=== PATIENT | female | born 1965 | race American Indian/Alaskan Native ===

== ENCOUNTER 2016-05-03 20:35 | Emergency (ER) | payer MEDICARE ==
[2016-05-03 23:45] VITALS: BP 127/85
[2016-05-04] MEDS ORDERED: TYLENOL PO ONE (00:59)
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
[2016-05-04] MEDS ORDERED: MOTRIN PO ONE (03:16)
[2016-05-04] MEDS ORDERED: BENADRYL PO ONE (03:16)
--- NOTE | 2016-05-04 03:24 | Cat Scan Report ---
FINAL REPORT PROCEDURE: CT FACIAL BONES WO CON TECHNIQUE: Computerized tomography of the facial bones and soft tissues with axial and coronal sections performed from the cranial aspect of the frontal sinuses to the caudal portion of the mandible without contrast material. HISTORY: left eye trauma COMPARISON: No prior studies are available for comparison. FINDINGS: Bones: There is a fracture of the left side of the nasal bone. The anterior maxillary spine is intact. The bony orbital ortega are intact. There facial bones are intact. Zygomatic arches are intact. The mandible and temporal mandibular joints are intact.. Paranasal sinuses: There is mucosal thickening in the left maxillary sinus. There are no air-fluid levels.. Soft tissues: Globes, optic nerves and extraocular muscles are intact. There is no proptosis or hematoma.. Other: None. IMPRESSION: There is a fracture of the left side of the nasal bone. The anterior maxillary spine is intact. The bony orbital ortega are intact. There facial bones are intact.
== END 2016-05-04 04:08 | disposition home or self-care (01) ==
LOC: ED 20:35
DX: S02.2XXA Fracture of nasal bones, initial encounter for closed fracture (principal); J45.909 Unspecified asthma, uncomplicated; F41.9 Anxiety disorder, unspecified; F17.210 Nicotine dependence, cigarettes, uncomplicated; F12.90 Cannabis use, unspecified, uncomplicated; Z88.8 Allergy status to other drugs, medicaments and biological substances; Y04.2XXA Assault by strike against or bumped into by another person, initial encounter; Y93.89 Activity, other specified; Y99.9 Unspecified external cause status; Y92.89 Other specified places as the place of occurrence of the external cause
CPT/HCPCS: 70486

== ENCOUNTER 2016-06-23 09:02 | Inpatient (IN) | payer MEDICARE ==
[2016-06-23 10:04] LABS: Basophils % (Auto) 0.9 % (0.0-1.8); Eosinophils % (Auto) 4.2 % (0.0-4.3); Hematocrit 34.7 % (30.3-42.9); Hemoglobin 11.4 gm/dl (10.1-14.3); Mean Corpuscular HGB Conc 33 % (30-34); Mean Corpuscular Hemoglobin 30 pg (28-32); Mean Corpuscular Volume 91 fl (79-97); Platelet Count 261 K/mm3 (140-440); Red Blood Count 3.84 M/mm3 (3.65-5.03); Red Cell Distribution Width 13.1 % (13.2-15.2); White Blood Count 6.4 K/mm3 (4.5-11.0)
[2016-06-23 10:22] LABS: Alanine Aminotransferase 48 units/L (7-56); Albumin 4.1 g/dL (3.9-5); Albumin/Globulin Ratio 1.6 %; Alkaline Phosphatase 143 units/L (35-129); Anion Gap 19 mmol/L; BUN/Creatinine Ratio 8.33; Bilirubin,Total 0.4 mg/dL (0.1-1.2); Blood Urea Nitrogen 5 mg/dL (7-17); Carbon Dioxide 25 mmol/L (22-30); Chloride 99.4 mmol/L (98-107); Glucose 90 mg/dL (65-100); Lipase 8 units/L (13-60); Potassium 4.4 mmol/L (3.6-5.0); Sodium 139 mmol/L (137-145); Total Protein 6.7 g/dL (6.3-8.2)
[2016-06-23 11:50] LABS: Bacteria,Urine 2+ /HPF (Negative); Bilirubin,Urine NEG (Negative); Blood,Urine NEG (Negative); Ketones,Urine NEG (Negative); Leukocyte Esterase,Urine TR (Negative); Mucus,Urine 1+ /HPF; Nitrite,Urine NEG (Negative); Protein,Urine <15 mg/dL mg/dL (Negative); Urobilinogen,Urine < 2.0 mg/dL (<2.0)
[2016-06-23] MEDS ORDERED: NACL 0.9% 1000 ML 1,000 ML IV ONE (22:43)
[2016-06-23] MEDS ORDERED: DILAUDID IV ONE (22:43)
[2016-06-23] MEDS ORDERED: ZOFRAN IV ONE (22:43)
--- NOTE | 2016-06-23 22:44 | Emergency Department Report ---
ED General Adult HPI - General Chief complaint: Abdominal Pain Stated complaint: SEVERE ABD PAIN/UNABLE TO USE BATHROOM Time Seen by Provider: 06/23/16 22:34 Source: patient, RN notes reviewed, old records reviewed Mode of arrival: Ambulatory Limitations: No Limitations - History of Present Illness Initial comments: This is a 50-year-old female. She is previously unknown to me. Patient has a past medical history of interstitial cystitis, sciatica disorder, small bowel obstruction, constipation. Patient recently admitted to the hospital for intractable nausea and vomiting. Patient did have a recent history of laparotomy for bowel obstruction with lysis of adhesions 3 weeks prior to presentation on for very 2016. Patient was seen by her general surgeon, Dr. Santos, who stated "the patient had persistent constipation thought to be opioid induced. She had a small bowel series done after week of surgery and instead of Gastrografin in order to with given barium from the chests has been very slow to past because of the OIC." The patient presents again to the ER complaining of nausea and vomiting diffuse abdominal pain. She reports having had a small bowel movement on June 15, reports not defecating since then. Her abdominal pain is sharp and achy. It is all over. It increases with palpation and range of motion. It decreases with rest. She reports difficulty tolerating liquid feeds. She also reports chronic dysuria, which is not new, worse and different. She recently moved here from [place], and does not have a private urologist. -: Gradual Location: abdomen Quality: aching Consistency: constant Improves with: medication, rest Worsens with: eating Associated Symptoms: loss of appetite, malaise, nausea/vomiting, weakness - Related Data Home Medications Medication Instructions Recorded Confirmed Last Taken Cyclobenzaprine [Flexeril 10 MG 10 mg PO TID PRN 01/10/16 06/11/16 06/08/16 TAB] Ferrous Sulfate 4 mg PO DAILY 01/10/16 06/11/16 06/08/16 Multivitamin No.44/Vit D3/K 1 each PO DAILY 01/10/16 06/11/16 06/08/16 [Multivitamins Softgels] Polyethylene Glycol 3350 [Miralax 17 gram PO DAILY 01/10/16 06/11/16 06/08/16 3350] traZODone [Desyrel] 100 mg PO QHS 01/10/16 06/11/16 01/10/16 Diazepam [Valium] 10 mg PO BID PRN 03/29/16 06/11/16 06/08/16 Previous Rx's Medication Instructions Recorded Last Taken Type Ondansetron [Zofran ODT TAB] 4 mg PO Q8HR PRN #20 tab.rapdis 04/04/16 06/08/16 Rx Sennosides/Docusate Sodium 1 each PO DAILY #15 tablet 05/29/16 06/08/16 Rx [Senna-Docusate Sodium Tablet] Lactulose [Cephulac] 20 gm PO Q6HR #30 oral.liqd 06/06/16 06/08/16 Rx oxyCODONE /ACETAMINOPHEN [Percocet 1 tab PO Q6H PRN #15 tablet 06/15/16 Unknown Rx 5/325 mg] Allergies Allergy/AdvReac Type Severity Reaction Status Date / Time hydrocodone bitartrate Allergy Hives Verified 06/10/16 10:47 [From Vicodin] iodine Allergy Hives Verified 06/23/16 09:20 ketorolac tromethamine Allergy Hives Verified 06/10/16 10:47 [From Toradol] shellfish derived Allergy Hives Verified 06/10/16 10:47 tramadol Allergy Hives Verified 06/10/16 10:47 ED Review of Systems ROS: Stated complaint: SEVERE ABD PAIN/UNABLE TO USE BATHROOM Other details as noted in HPI Constitutional: malaise, weakness. denies: fever Eyes: denies: vision change ENT: denies: epistaxis Respiratory: denies: cough Cardiovascular: denies: chest pain Gastrointestinal: abdominal pain, nausea, vomiting, constipation Genitourinary: frequency Musculoskeletal: back pain Skin: denies: lesions Neurological: weakness Psychiatric: anxiety ED Past Medical Hx - Past Medical History Hx Congestive Heart Failure: No Hx Diabetes: No Hx Renal Disease: Yes (interstitial cystitis) Hx Psychiatric Treatment: Yes (anxiety) Hx Asthma: Yes Hx COPD: No Additional medical history: INTERSTITIAL CYSTITIS - Surgical History Hx Cholecystectomy: Yes Hx Appendectomy: Yes Additional Surgical History: HYSTERECTOMY. X 3 - Social History Smoking Status: Current Every Day Smoker Substance Use Type: None - Medications Home Medications: Home Medications Medication Instructions Recorded Confirmed Last Taken Type Cyclobenzaprine [Flexeril 10 MG 10 mg PO TID PRN 01/10/16 06/11/16 06/08/16 History TAB] Ferrous Sulfate 4 mg PO DAILY 01/10/16 06/11/16 06/08/16 History Multivitamin No.44/Vit D3/K 1 each PO DAILY 01/10/16 06/11/16 06/08/16 History [Multivitamins Softgels] Polyethylene Glycol 3350 [Miralax 17 gram PO DAILY 01/10/16 06/11/16 06/08/16 History 3350] traZODone [Desyrel] 100 mg PO QHS 01/10/16 06/11/16 01/10/16 History Diazepam [Valium] 10 mg PO BID PRN 03/29/16 06/11/16 06/08/16 History Ondansetron [Zofran ODT TAB] 4 mg PO Q8HR PRN #20 tab.rapdis 04/04/16 06/11/16 06/08/16 Rx Sennosides/Docusate Sodium 1 each PO DAILY #15 tablet 05/29/16 06/11/16 Rx [Senna-Docusate Sodium Tablet] Lactulose [Cephulac] 20 gm PO Q6HR #30 oral.liqd 06/06/16 06/11/16 06/08/16 Rx oxyCODONE /ACETAMINOPHEN [Percocet 1 tab PO Q6H PRN #15 tablet 06/15/16 Unknown Rx 5/325 mg] ED Physical Exam - General Limitations: No Limitations General appearance: alert, in no apparent distress - Head Head exam: Present: atraumatic, normocephalic - Eye Eye exam: Present: normal appearance, EOMI. Absent: nystagmus - ENT ENT exam: Present: normal exam, normal orophraynx, mucous membranes moist, normal external ear exam - Neck Neck exam: Present: normal inspection, full ROM. Absent: tenderness, meningismus - Respiratory Respiratory exam: Present: normal lung sounds bilaterally. Absent: respiratory distress, wheezes, rales, rhonchi, stridor, decreased breath sounds - Cardiovascular Cardiovascular Exam: Present: normal rhythm, tachycardia, normal heart sounds. Absent: systolic murmur, diastolic murmur, rubs, gallop - GI/Abdominal GI/Abdominal exam: Present: soft, distended, tenderness, other (mild diffuse abdominal tenderness. No rebound, guarding or peritoneal signs). Absent: guarding, rebound, rigid, pulsatile mass - Extremities Exam Extremities exam: Present: normal inspection, full ROM, normal capillary refill. Absent: tenderness, pedal edema, joint swelling, calf tenderness - Back Exam Back exam: Present: normal inspection, full ROM. Absent: tenderness, CVA tenderness (R), CVA tenderness (L), muscle spasm, paraspinal tenderness, vertebral tenderness - Neurological Exam Neurological exam: Present: alert, oriented X3, normal gait, other (Extraocular movements intact. Tongue midline. No facial droop. Facial sensation intact to light touch in the V1, V2, V3 distribution bilaterally. 5 and 5 strength in 4 extremities.. Sensation is intact to light touch in 4 extremities.). Absent : motor sensory deficit - Psychiatric Psychiatric exam: Present: anxious - Skin Skin exam: Present: warm, dry, intact, normal color. Absent: rash ED Course Vital Signs 06/23/16 06/23/16 09:20 22:49 Temperature 98.5 F 98 F Pulse Rate 109 H 101 H Respiratory 20 16 Rate Blood Pressure 132/74 Blood Pressure 110/75 [Left] O2 Sat by Pulse 100 100 Oximetry - Reevaluation(s) Reevaluation #1: 06/23/16 22:51 differential diagnosis: Constipation, bowel obstruction, narcotic bowel syndrome Assessment and plan: 50-year-old female with abdominal pain, distention, nausea and vomiting. We will treat symptomatically. CT scan with oral contrast is pending. We will reassess after initial data points. Reevaluation #2: 06/24/16 04:14 CT scans suggest small bowel obstruction. Nasogastric tube is ordered. Case discussed with patient's general surgeon, Dr. Santos, who agrees to consult on the patient. Case discussed with Hospital physician, Dr. Reddy, who accepts patient to his service. ED Medical Decision Making - Lab Data Result diagrams: 06/23/16 09:47 06/23/16 09:47 Vital Signs 06/23/16 06/23/16 09:20 22:49 Temperature 98.5 F 98 F Pulse Rate 109 H 101 H Respiratory 20 16 Rate Blood Pressure 132/74 Blood Pressure 110/75 [Left] O2 Sat by Pulse 100 100 Oximetry Labs 06/23/16 06/23/16 06/23/16 09:47 09:47 11:36 WBC 6.4 RBC 3.84 Hgb 11.4 Hct 34.7 MCV 91 MCH 30 MCHC 33 RDW 13.1 L Plt Count 261 Lymph % (Auto) 18.0 [place] % (Auto) 7.3 Eos % (Auto) 4.2 Baso % (Auto) 0.9 Lymph # 1.2 [place] # 0.5 Eos # 0.3 Baso # 0.1 Seg Neutrophils % 69.6 Seg Neutrophils # 4.5 Sodium 139 Potassium 4.4 Chloride 99.4 Carbon Dioxide 25 Anion Gap 19 BUN 5 L Creatinine 0.6 L Estimated GFR > 60 BUN/Creatinine Ratio 8.33 Glucose 90 Calcium 9.0 Total Bilirubin 0.4 AST 35 ALT 48 Alkaline Phosphatase 143 H Total Protein 6.7 Albumin 4.1 Albumin/Globulin Ratio 1.6 Lipase 8 L Urine Color Yellow Urine Turbidity Clear Urine pH 6.0 Ur Specific [place] 1.010 Urine Protein <15 mg/dl Urine Glucose (UA) Neg Urine Ketones Neg Urine Blood Neg Urine Nitrite Neg Urine Bilirubin Neg Urine Urobilinogen < 2.0 Ur Leukocyte Esterase Tr Urine WBC (Auto) 6.0 Urine RBC (Auto) 1.0 U Epithel Cells (Auto) 6.0 Urine Bacteria (Auto) 2+ Urine Mucus 1+ Urine HCG, Qual 06/23/16 11:36 WBC RBC Hgb Hct MCV MCH MCHC RDW Plt Count Lymph % (Auto) [place] % (Auto) Eos % (Auto) Baso % (Auto) Lymph # [place] # Eos # Baso # Seg Neutrophils % Seg Neutrophils # Sodium Potassium Chloride Carbon Dioxide Anion Gap BUN Creatinine Estimated GFR BUN/Creatinine Ratio Glucose Calcium Total Bilirubin AST ALT Alkaline Phosphatase Total Protein Albumin Albumin/Globulin Ratio Lipase Urine Color Urine Turbidity Urine pH Ur Specific [place] Urine Protein Urine Glucose (UA) Urine Ketones Urine Blood Urine Nitrite Urine Bilirubin Urine Urobilinogen Ur Leukocyte Esterase Urine WBC (Auto) Urine RBC (Auto) U Epithel Cells (Auto) Urine Bacteria (Auto) Urine Mucus Urine HCG, Qual Negative - Radiology Data Radiology results: report reviewed, image reviewed \\ ct scan of abdomen and pelvis with oral contrast suggests small bowl obstruction Critical care attestation.: If time is entered above; I have spent that time in minutes in the direct care of this critically ill patient, excluding procedure time. ED Disposition Clinical Impression: Small bowel obstruction, Constipation Disposition: OP ADMITTED IP TO THIS HOSP Is pt being admited?: Yes Does the pt Need Aspirin: No Condition: Good
[2016-06-24] MEDS ORDERED: MORPHINE ONE (03:00)
[2016-06-24] MEDS ORDERED: MORPHINE IV ONE ×2 (03:30→04:24)
--- NOTE | 2016-06-24 03:45 | Cat Scan Report ---
FINAL REPORT PROCEDURE: CT ABDOMEN PELVIS WO CON TECHNIQUE: Computerized axial tomography of the abdomen and pelvis was performed without intravenous contrast. This study is performed without intravascular contrast material and its sensitivity for abdominal and pelvic pathology, including neoplasms, inflammation, abscess, free fluid, thrombosis, arterial dissection and infarction, is reduced compared with a contrast enhanced study. HISTORY: ?SBO, abdominal pain COMPARISON: No prior studies are available for comparison. FINDINGS: Visualized lower thorax: No significant abnormality. Liver: Normal size and attenuation. Spleen: Normal size and attenuation. Gallbladder and biliary system: The gallbladder is absent. There is slight dilatation of the central biliary ductal system.. Pancreas: Normal. Adrenals: Normal. Kidneys: Both kidneys have a normal size. No hydronephrosis. No renal stones or masses. GI tract: There distention of the stomach. Multiple loops of distended contrast and gas-filled small bowel identified in the mid and upper abdomen. This extends down into the pelvis. Contrast is identified into the distal ileum. There is significant gas and fecal debris throughout colon. The differential will include partial small bowel obstruction and ileus. Constipation is suspected.. Lymph nodes and mesentery: Normal. Vasculature: Normal. Bladder: The urinary bladder is moderately distended.. Reproductive organs: No pelvic masses.. Peritoneum: No free fluid. Musculoskeletal structures: No significant abnormality. Other: None. IMPRESSION: Multiple loops of distended contrast gas-filled small bowel identified in the mid and upper abdomen. This extends down to the pelvis with contrast identified into the distal ileum. The differential will include partial small bowel obstruction and significant ileus. There is evidence of significant gas and fecal debris throughout the colon. Constipation is suspected. Previous cholecystectomy there is slight dilatation of the central biliary ductal system..
[2016-06-24] MEDS ORDERED: XYLOCAINE TOPICAL 4% TP ONE (04:12)
[2016-06-24] MEDS ORDERED: LIDOCAINE VISCOUS 2% PO ONE (04:12)
[2016-06-24] MEDS ORDERED: TYLENOL PO PRN (06:44)
[2016-06-24] MEDS ORDERED: MILK OF MAGNESIA PO PRN (06:44)
[2016-06-24] MEDS ORDERED: ZOFRAN IV PRN (06:44)
--- NOTE | 2016-06-24 06:50 | History and Physical Report ---
History of Present Illness Date of examination: 06/24/16 Date of admission: 06/24/16 04:12 Chief complaint: Vomiting off and on for one week. History of present illness: 50 year old female admitted to the hospital because of bowel obstruction secondary to opioid-induced constipation. Patient laparotomy for lysis of adhesions or a month ago. She was readmitted 2 weeks ago with vomiting and constipation. She improved with conservative management. He was discharged last week. She comes back with the same symptomatology. A CT of the abdomen showed obstruction secondary to constipation. Past History Past Medical History: other (SBO ) Past Surgical History: cholecystectomy Social history: lives with family, prescription drug abuse. denies: smoking, alcohol abuse Family history: hypertension Medications and Allergies Allergies Allergy/AdvReac Type Severity Reaction Status Date / Time hydrocodone bitartrate Allergy Hives Verified 06/10/16 10:47 [From Vicodin] iodine Allergy Hives Verified 06/23/16 09:20 ketorolac tromethamine Allergy Hives Verified 06/10/16 10:47 [From Toradol] shellfish derived Allergy Hives Verified 06/10/16 10:47 tramadol Allergy Hives Verified 06/10/16 10:47 Home Medications Medication Instructions Recorded Confirmed Last Taken Type Cyclobenzaprine [Flexeril 10 MG 10 mg PO TID PRN 01/10/16 06/24/16 06/22/16 History TAB] Ferrous Sulfate 4 mg PO DAILY 01/10/16 06/24/16 06/22/16 History Multivitamin No.44/Vit D3/K 1 each PO DAILY 01/10/16 06/24/16 06/22/16 History [Multivitamins Softgels] Polyethylene Glycol 3350 [Miralax 17 gram PO DAILY 01/10/16 06/24/16 06/22/16 History 3350] traZODone [Desyrel] 100 mg PO QHS 01/10/16 06/24/16 01/10/16 History Diazepam [Valium] 10 mg PO BID PRN 03/29/16 06/24/16 06/22/16 History Ondansetron [Zofran ODT TAB] 4 mg PO Q8HR PRN #20 tab.rapdis 04/04/16 06/24/16 06/22/16 Rx Lactulose [Cephulac] 20 gm PO Q6HR #30 oral.liqd 06/06/16 06/24/16 06/22/16 Rx oxyCODONE /ACETAMINOPHEN [Percocet 1 tab PO Q6H PRN #15 tablet 06/15/1606/22/16 Rx 5/325 mg] Morphine ER [Ms Contin ER] 30 mg PO Q12HR PRN 06/24/16 06/24/16 06/22/16 History Active Meds: Active Medications Acetaminophen (Tylenol) 650 mg PO Q4H PRN PRN Reason: Pain MILD(1-3)/Fever >100.5/[place] Bisacodyl (Dulcolax) 10 mg HI QDAY PRN PRN Reason: Constipation unrelieved by MOM Enoxaparin Sodium (Lovenox) 40 mg SUB-Q QDAY [place] Hydromorphone HCl (Dilaudid) 1 mg IV Q3H PRN PRN Reason: Pain , Severe (7-10) Dextrose/Sodium Chloride (D5ns) 1,000 mls @ 100 mls/hr IV DIRECT [place] Magnesium Hydroxide (Milk Of Magnesia) 30 ml PO Q4H PRN PRN Reason: Constipation Ondansetron HCl (Zofran) 4 mg IV Q3H PRN PRN Reason: N/V unrelieved by Reglan Review of Systems All systems: negative Exam - Constitutional Vitals: Temp Pulse Resp BP Pulse Ox 98 F 89 16 116/79 100 06/23/16 22:49 06/24/16 03:00 06/24/16 06:04 06/24/16 03:00 06/24/16 03:00 General appearance: Present: no acute distress, well-nourished - EENT Eyes: Present: PERRL ENT: hearing intact, clear oral mucosa - Neck Neck: Present: supple, normal ROM - Respiratory Respiratory effort: normal Respiratory: bilateral: CTA - Cardiovascular Heart Sounds: Present: S1 & S2. Absent: rub, click - Extremities Extremities: pulses symmetrical, No edema Peripheral Pulses: within normal limits - Abdominal General gastrointestinal: Present: tender, distended, hypoactive bowel sounds Localized gastrointestinal: tender: diffuse Female genitourinary: Present: normal - Rectal Rectal Exam: deferred - Integumentary Integumentary: Present: clear, warm, dry - Musculoskeletal Musculoskeletal: gait normal, strength equal bilaterally - Psychiatric Psychiatric: appropriate mood/affect, intact judgment & insight - Neurologic Neurologic: CNII-XII intact, moves all extremities - Allied Health Allied health notes reviewed: nursing Results - Labs CBC & Chem 7: 06/25/16 04:39 06/25/16 04:39 Labs: Laboratory Last Values WBC 6.4 K/mm3 (4.5-11.0) 06/23/16 09:47 RBC 3.84 M/mm3 (3.65-5.03) 06/23/16 09:47 Hgb 11.4 gm/dl (10.1-14.3) 06/23/16 09:47 Hct 34.7 % (30.3-42.9) 06/23/16 09:47 MCV 91 fl (79-97) 06/23/16 09:47 MCH 30 pg (28-32) 06/23/16 09:47 MCHC 33 % (30-34) 06/23/16 09:47 RDW 13.1 % (13.2-15.2) L 06/23/16 09:47 Plt Count 261 K/mm3 (140-440) 06/23/16 09:47 Lymph % (Auto) 18.0 % (13.4-35.0) 06/23/16 09:47 [place] % (Auto) 7.3 % (0.0-7.3) 06/23/16 09:47 Eos % (Auto) 4.2 % (0.0-4.3) 06/23/16 09:47 Baso % (Auto) 0.9 % (0.0-1.8) 06/23/16 09:47 Lymph # 1.2 K/mm3 (1.2-5.4) 06/23/16 09:47 [place] # 0.5 K/mm3 (0.0-0.8) 06/23/16 09:47 Eos # 0.3 K/mm3 (0.0-0.4) 06/23/16 09:47 Baso # 0.1 K/mm3 (0.0-0.1) 06/23/16 09:47 Seg Neutrophils % 69.6 % (40.0-70.0) 06/23/16 09:47 Seg Neutrophils # 4.5 K/mm3 (1.8-7.7) 06/23/16 09:47 Sodium 139 mmol/L (137-145) 06/23/16 09:47 Potassium 4.4 mmol/L (3.6-5.0) 06/23/16 09:47 Chloride 99.4 mmol/L (98-107) 06/23/16 09:47 Carbon Dioxide 25 mmol/L (22-30) 06/23/16 09:47 Anion Gap 19 mmol/L 06/23/16 09:47 BUN 5 mg/dL (7-17) L 06/23/16 09:47 Creatinine 0.6 mg/dL (0.7-1.2) L 06/23/16 09:47 Estimated GFR > 60 ml/min 06/23/16 09:47 BUN/Creatinine Ratio 8.33 % 06/23/16 09:47 Glucose 90 mg/dL (65-100) 06/23/16 09:47 Calcium 9.0 mg/dL (8.4-10.2) 06/23/16 09:47 Total Bilirubin 0.4 mg/dL (0.1-1.2) 06/23/16 09:47 AST 35 units/L (5-40) 06/23/16 09:47 ALT 48 units/L (7-56) 06/23/16 09:47 Alkaline Phosphatase 143 units/L (35-129) H 06/23/16 09:47 Total Protein 6.7 g/dL (6.3-8.2) 06/23/16 09:47 Albumin 4.1 g/dL (3.9-5) 06/23/16 09:47 Albumin/Globulin Ratio 1.6 % 06/23/16 09:47 Lipase 8 units/L (13-60) L 06/23/16 09:47 Urine Color Yellow (Yellow) 06/23/16 11:36 Urine Turbidity Clear (Clear) 06/23/16 11:36 Urine pH 6.0 (5.0-7.0) 06/23/16 11:36 Ur Specific [place] 1.010 (1.003-1.030) 06/23/16 11:36 Urine Protein <15 mg/dl mg/dL (Negative) 06/23/16 11:36 Urine Glucose (UA) Neg mg/dL (Negative) 06/23/16 11:36 Urine Ketones Neg mg/dL (Negative) 06/23/16 11:36 Urine Blood Neg (Negative) 06/23/16 11:36 Urine Nitrite Neg (Negative) 06/23/16 11:36 Urine Bilirubin Neg (Negative) 06/23/16 11:36 Urine Urobilinogen < 2.0 mg/dL (<2.0) 06/23/16 11:36 Ur Leukocyte Esterase Tr (Negative) 06/23/16 11:36 Urine WBC (Auto) 6.0 /HPF (0.0-6.0) 06/23/16 11:36 Urine RBC (Auto) 1.0 /HPF (0.0-6.0) 06/23/16 11:36 U Epithel Cells (Auto) 6.0 /HPF (0-13.0) 06/23/16 11:36 Urine Bacteria (Auto) 2+ /HPF (Negative) 06/23/16 11:36 Urine Mucus 1+ /HPF 06/23/16 11:36 Urine HCG, Qual Negative (Negative) 06/23/16 11:36 - Imaging and Cardiology CT scan - abdomen: report reviewed (SBO sec to constipation/Ileus) Assessment and Plan Advance Directives: Yes (Full code) VTE prophylaxis?: Chemical Plan of care discussed with patient/family: Yes - Patient Problems (1) Small bowel obstruction Current Visit: Yes Status: Acute Plan to address problem: Recurrent sec to opiate use Will defer to surgery On Toradol Dilaudid d/c.'d Lactulose enema?? (2) Constipation Current Visit: Yes Status: Chronic Qualifiers: Constipation type: C Plan to address problem: No opiate prescriptions from now on. Patient to be counselled. (3) DVT prophylaxis Current Visit: No Status: Acute Plan to address problem: on lovenox
[2016-06-24] MEDS: D5NS 1,000 ML IV SCH ×2 (08:17→17:43)
[2016-06-24] MEDS: DILAUDID IV PRN ×4 (09:00→21:06)
[2016-06-24] MEDS: LOVENOX SUB-Q SCH (10:19)
--- NOTE | 2016-06-24 11:12 | Consultation ---
History of Present Illness Consult date: 06/24/16 Reason for consult: other (intermittent nausea and vomiting for a week.) Chief complaint: Nausea and vomiting intermittently for a week. - History of present illness History of present illness: 50 year old female admitted to the hospital because of bowel obstruction secondary to opioid-induced constipation. Patient laparotomy for lysis of adhesions or a month ago. She was readmitted 2 weeks ago with vomiting and constipation. She improved with conservative management. He was discharged last week. She comes back with the same symptomatology. A CT of the abdomen showed obstruction secondary to constipation. Past History Past Surgical History: cholecystectomy Social history: no significant social history Medications and Allergies Allergies Allergy/AdvReac Type Severity Reaction Status Date / Time hydrocodone bitartrate Allergy Hives Verified 06/10/16 10:47 [From Vicodin] iodine Allergy Hives Verified 06/23/16 09:20 ketorolac tromethamine Allergy Hives Verified 06/10/16 10:47 [From Toradol] shellfish derived Allergy Hives Verified 06/10/16 10:47 tramadol Allergy Hives Verified 06/10/16 10:47 Home Medications Medication Instructions Recorded Confirmed Last Taken Type Cyclobenzaprine [Flexeril 10 MG 10 mg PO TID PRN 01/10/16 06/24/16 06/22/16 History TAB] Ferrous Sulfate 4 mg PO DAILY 01/10/16 06/24/16 06/22/16 History Multivitamin No.44/Vit D3/K 1 each PO DAILY 01/10/16 06/24/16 06/22/16 History [Multivitamins Softgels] Polyethylene Glycol 3350 [Miralax 17 gram PO DAILY 01/10/16 06/24/16 06/22/16 History 3350] traZODone [Desyrel] 100 mg PO QHS 01/10/16 06/24/16 01/10/16 History Diazepam [Valium] 10 mg PO BID PRN 03/29/16 06/24/16 06/22/16 History Ondansetron [Zofran ODT TAB] 4 mg PO Q8HR PRN #20 tab.rapdis 04/04/16 06/24/16 06/22/16 Rx Lactulose [Cephulac] 20 gm PO Q6HR #30 oral.liqd 06/06/16 06/24/16 06/22/16 Rx oxyCODONE /ACETAMINOPHEN [Percocet 1 tab PO Q6H PRN #15 tablet 06/15/1606/22/16 Rx 5/325 mg] Morphine ER [Ms Contin ER] 30 mg PO Q12HR PRN 06/24/16 06/24/16 06/22/16 History Active Meds: Active Medications Acetaminophen (Tylenol) 650 mg PO Q4H PRN PRN Reason: Pain MILD(1-3)/Fever >100.5/[place] Bisacodyl (Dulcolax) [address] QDAY PRN PRN Reason: Constipation unrelieved by MOM Enoxaparin Sodium (Lovenox) 40 mg SUB-Q QDAY [place] Last Admin: 06/24/16 10:19 Dose: 40 mg Hydromorphone HCl (Dilaudid) 1 mg IV Q3H PRN PRN Reason: Pain , Severe (7-10) Last Admin: 06/24/16 09:00 Dose: 1 mg Dextrose/Sodium Chloride (D5ns) 1,000 mls @ 100 mls/hr IV DIRECT IRVING Last Admin: 06/24/16 08:17 Dose: 100 mls/hr Magnesium Hydroxide (Milk Of Magnesia) 30 ml PO Q4H PRN PRN Reason: Constipation Ondansetron HCl (Zofran) 4 mg IV Q3H PRN PRN Reason: N/V unrelieved by Reglan Review of Systems All systems: negative (present complaint.) Exam Vital Signs Temp Pulse Resp BP Pulse Ox 98.5 F 109 H 20 132/74 100 06/23/16 09:20 06/23/16 09:20 06/23/16 09:20 06/23/16 09:20 06/23/16 09:20 - General physical appearance Positive: well developed, well nourished, no distress - Eyes Positive: PERRL, normal occular movement - ENT Positive: normal pinna, normal nares, normal mucosa, no hearing loss, no congestion, other (NG tube in place) - Neck Positive: no masses, no bruits, trachea midline, no venous distension - Respiratory Positive: normal expansion, normal respiratory effort, clear to auscultation - Cardiovascular Rhythm: regular Heart Sounds: Present: S1 & S2 - Abdomen Abdomen: Present: soft, bowel sounds hypoactive, distended (mild) - Integumentary no rash, no growths, no abnormal pigmentation - Neurologic Neurologic: alert and oriented to time, place and person, motor strength and sensation are grossly intact - Musculoskeletal normal gait, normal posture - Psychiatric Psychiatric: appropriate mood/affect, intact judgment & insight Results - Labs 06/23/16 09:47 06/23/16 09:47 - Imaging CT scan - abdomen: report reviewed, image reviewed Assessment and Plan Impression: Bowel obstruction secondary to opioid-induced constipation. Recommendations: Conservative management with NG tube and IV fluids. Consider GoLYTELY through the NG tube. Also consider GI evaluation.
--- NOTE | 2016-06-24 17:48 | Gastroenterology Consultation ---
History of Present Illness - Reason for Consult Consult date: 06/24/16 SBO, constipation Requesting physician: ARMAND NUNEZ - History of Present Illness Ms Bravo is a 50 yo AAF who presents with abdominal pain and severe constipation. Pt admitted last month for SBO s/p lysis of adhesions. She reports having only 1 small bm since that time. She was admitted for similar symptoms recently which improved with conservative management. She is on chronic narcotics for interstitial cystitis per pt. Reports feeling full soon after eating. States she had a colonoscopy 2 years ago but does not recall details of findings. Imaging shows dilated loops of SB, and severe constipation with suspected SBO vs severe ileus. She currently has an NG tube in place which has helped symptoms. Past History Past Medical History: other (sciatica, interstitial cystitis) Past Surgical History: cholecystectomy Social history: no significant social history Medications and Allergies Allergies Allergy/AdvReac Type Severity Reaction Status Date / Time hydrocodone bitartrate Allergy Hives Verified 06/10/16 10:47 [From Vicodin] iodine Allergy Hives Verified 06/23/16 09:20 ketorolac tromethamine Allergy Hives Verified 06/10/16 10:47 [From Toradol] shellfish derived Allergy Hives Verified 06/10/16 10:47 tramadol Allergy Hives Verified 06/10/16 10:47 Home Medications Medication Instructions Recorded Confirmed Last Taken Type Cyclobenzaprine [Flexeril 10 MG 10 mg PO TID PRN 01/10/16 06/24/16 06/22/16 History TAB] Ferrous Sulfate 4 mg PO DAILY 01/10/16 06/24/16 06/22/16 History Multivitamin No.44/Vit D3/K 1 each PO DAILY 01/10/16 06/24/16 06/22/16 History [Multivitamins Softgels] Polyethylene Glycol 3350 [Miralax 17 gram PO DAILY 01/10/16 06/24/16 06/22/16 History 3350] traZODone [Desyrel] 100 mg PO QHS 01/10/16 06/24/16 01/10/16 History Diazepam [Valium] 10 mg PO BID PRN 03/29/16 06/24/16 06/22/16 History Ondansetron [Zofran ODT TAB] 4 mg PO Q8HR PRN #20 tab.rapdis 12/21/16 03/12/17 03/10/17 Rx Lactulose [Cephulac] 20 gm PO Q6HR #30 oral.liqd 06/06/16 06/24/16 06/22/16 Rx oxyCODONE /ACETAMINOPHEN [Percocet 1 tab PO Q6H PRN #15 tablet 06/15/1606/22/16 Rx 5/325 mg] Morphine ER [Ms Contin ER] 30 mg PO Q12HR PRN 06/24/16 06/24/16 06/22/16 History Active Meds: Active Medications Acetaminophen (Tylenol) 650 mg PO Q4H PRN PRN Reason: Pain MILD(1-3)/Fever >100.5/[place] Bisacodyl (Dulcolax) 10 mg OR QDAY PRN PRN Reason: Constipation unrelieved by MOM Enoxaparin Sodium (Lovenox) 40 mg SUB-Q QDAY [place] Last Admin: 06/24/16 10:19 Dose: 40 mg Hydromorphone HCl (Dilaudid) 1 mg IV Q3H PRN PRN Reason: Pain , Severe (7-10) Last Admin: 06/24/16 17:43 Dose: 1 mg Dextrose/Sodium Chloride (D5ns) 1,000 mls @ 100 mls/hr IV DIRECT [place] Last Admin: 06/24/16 17:43 Dose: 100 mls/hr Magnesium Hydroxide (Milk Of Magnesia) 30 ml PO Q4H PRN PRN Reason: Constipation Ondansetron HCl (Zofran) 4 mg IV Q3H PRN PRN Reason: N/V unrelieved by Reglan Review of Systems - Review of Systems All systems: negative Constitutional: poor appetite Exam - Constitutional Vital Signs: Temp Pulse Resp BP Pulse Ox 98.4 F 86 16 112/77 100 06/24/16 08:51 06/24/16 08:51 06/24/16 08:51 06/24/16 08:51 06/24/16 08:51 General appearance: no acute distress, other (thin female) - EENT Eyes: PERRL, EOM intact ENT: hearing intact, clear oral mucosa (+ NG tube in place) - Neck Neck: supple, normal ROM - Respiratory Respiratory effort: normal Respiratory: bilateral: CTA - Cardiovascular Rhythm: regular Heart Sounds: Present: S1 & S2 Extremities: No edema - Gastrointestinal General gastrointestinal: Present: soft (mild distention, diffuse ttp, +bs) - Integumentary Integumentary: Present: clear, warm - Musculoskeletal Musculoskeletal: normal - Neurologic Neurological: alert and oriented x3 - Psychiatric Psychiatric: appropriate mood/affect - Labs CBC & Chem 7: 06/25/16 04:39 06/25/16 04:39 - Imaging X-ray: report reviewed CT Scan: report reviewed Assessment and Plan 50 yo aaf with h/o chronic narcotic use, SBO s/p lysis of adhesions, presents with severe constipation and CT findings of severe ileus vs SBO. Evaluated by surgery, suspect pt has opiod induced constipation. -start tap water enemas BID -repeat KUB -start relistor -NG tube to IS for time being until pt able to have bm's.
[2016-06-25] MEDS: DILAUDID IV PRN ×2 (01:03→03:54)
[2016-06-25] MEDS ORDERED: CHLORASEPTIC MM PRN (03:25)
[2016-06-25 05:10] LABS: Basophils % (Auto) 0.9 % (0.0-1.8); Eosinophils % (Auto) 6.3 % (0.0-4.3); Hematocrit 33.4 % (30.3-42.9); Mean Corpuscular HGB Conc 33 % (30-34); Mean Corpuscular Hemoglobin 30 pg (28-32); Mean Corpuscular Volume 91 fl (79-97); Platelet Count 261 K/mm3 (140-440); Red Blood Count 3.67 M/mm3 (3.65-5.03); Red Cell Distribution Width 12.9 % (13.2-15.2); White Blood Count 5.1 K/mm3 (4.5-11.0)
[2016-06-25 05:26] LABS: Alanine Aminotransferase 26 units/L (7-56); Albumin 3.5 g/dL (3.9-5); Albumin/Globulin Ratio 1.5 %; Alkaline Phosphatase 112 units/L (35-129); Anion Gap 12 mmol/L; Bilirubin,Total 0.4 mg/dL (0.1-1.2); Blood Urea Nitrogen 3 mg/dL (7-17); Calcium 8.4 mg/dL (8.4-10.2); Carbon Dioxide 27 mmol/L (22-30); Chloride 106.3 mmol/L (98-107); Glucose 118 mg/dL (65-100); Potassium 4.4 mmol/L (3.6-5.0); Sodium 141 mmol/L (137-145); Total Protein 5.8 g/dL (6.3-8.2)
[2016-06-25] MEDS ORDERED: TORADOL IV PRN (07:24)
[2016-06-25] MEDS ORDERED: RELISTOR SUB-Q SCH (09:00)
[2016-06-25] MEDS: LOVENOX SUB-Q SCH (09:25)
[2016-06-25] MEDS: MORPHINE IV PRN ×3 (09:25→19:39)
--- NOTE | 2016-06-25 10:07 | Admit Criteria Form ---
Admission Criteria Documentation: INTESTINAL OBSTRUCTION Clinical Indications for Admission to Inpatient Care (Place 'X' for any and all applicable criteria): Admission is indicated for ANY ONE of the following (1)(2)(3)(4)(5): [X]I. Partial bowel obstruction [ ]II. Complete bowel obstruction Extended stay beyond goal length of stay may be needed for(1)(4)(12(: [ ]a) Identified etiology (eg, hernia, volvulus, cancer with obstruction) requiring intervention [ ]b) Gallstone ileus [ ]c) Surgical intervention [ ]d) Acute comorbid illness (eg, electrolyte imbalance, hypovolemia, renal failure) The original [employer] content created by [employer] has been revised. The portions of the content which have been revised are identified through the use of italic text or in bold, and [facility] [employer] has neither reviewed nor approved the modified material. All other unmodified content is copyright [employer]. Please see references footnoted in the original [employer] edition 2016 Admission Criteria Met: Yes
--- NOTE | 2016-06-25 10:07 | XRay Report ---
ABDOMEN RADIOGRAPH INDICATION: Constipation, ileus versus small bowel obstruction. COMPARISON: 06/12/2016 FINDINGS: Frontal abdominal radiograph demonstrates new esophagogastric tube tip about the distal stomach. Stable cholecystectomy clips. Overall less pronounced bowel distention with partial clearing of previous colonic contrast, though some new from interval CT scans also noted. Few pelvic phleboliths. Stable bones. Incompletely imaged lung bases, fairly clear on the left. CONCLUSION: New esophagogastric tube and overall lesser bowel contrast and slight decreased bowel distention, as described. Please correlate. Thank you for the opportunity to participate in this patient's care.
--- NOTE | 2016-06-25 11:24 | Progress Note ---
Assessment and Plan IMP: OIC. PLAN: Continue medical management. Subjective Date of service: 06/25/16 Patient Reports: Positive: no new complaints, flatus, no bowel movement Objective Vital Signs - 12hr 06/25/16 06/25/16 00:03 08:00 Temperature 98.6 F 98.3 F Pulse Rate [ 88 93 H Left Radial] Respiratory 18 18 Rate Blood Pressure 128/89 135/91 [Left Arm] O2 Sat by Pulse 100 100 Oximetry - Abdomen soft, bowel sounds hypoactive - Labs 06/25/16 04:39 06/25/16 04:39 Diabetes panel 06/25/16 Range/Units 04:39 Sodium 141 (137-145) mmol/L Potassium 4.4 (3.6-5.0) mmol/L Chloride 106.3 (98-107) mmol/L Carbon Dioxide 27 (22-30) mmol/L BUN 3 L (7-17) mg/dL Creatinine 0.4 L (0.7-1.2) mg/dL Glucose 118 H (65-100) mg/dL Calcium 8.4 (8.4-10.2) mg/dL AST 21 (5-40) units/L ALT 26 (7-56) units/L Alkaline Phosphatase 112 (35-129) units/L Total Protein 5.8 L (6.3-8.2) g/dL Albumin 3.5 L (3.9-5) g/dL Calcium panel 06/25/16 Range/Units 04:39 Calcium 8.4 (8.4-10.2) mg/dL Albumin 3.5 L (3.9-5) g/dL Pituitary panel 06/25/16 Range/Units 04:39 Sodium 141 (137-145) mmol/L Potassium 4.4 (3.6-5.0) mmol/L Chloride 106.3 (98-107) mmol/L Carbon Dioxide 27 (22-30) mmol/L BUN 3 L (7-17) mg/dL Creatinine 0.4 L (0.7-1.2) mg/dL Glucose 118 H (65-100) mg/dL Calcium 8.4 (8.4-10.2) mg/dL Adrenal panel 06/25/16 Range/Units 04:39 Sodium 141 (137-145) mmol/L Potassium 4.4 (3.6-5.0) mmol/L Chloride 106.3 (98-107) mmol/L Carbon Dioxide 27 (22-30) mmol/L BUN 3 L (7-17) mg/dL Creatinine 0.4 L (0.7-1.2) mg/dL Glucose 118 H (65-100) mg/dL Calcium 8.4 (8.4-10.2) mg/dL Total Bilirubin 0.4 (0.1-1.2) mg/dL AST 21 (5-40) units/L ALT 26 (7-56) units/L Alkaline Phosphatase 112 (35-129) units/L Total Protein 5.8 L (6.3-8.2) g/dL Albumin 3.5 L (3.9-5) g/dL - Imaging Abdominal x-ray: report reviewed
--- NOTE | 2016-06-25 12:35 | Progress Note ---
Assessment and Plan Assessment and plan: Intestinal obstruction 2/2 to narcotic-induced constipation Patient was admitted recently for this and complains Patient had lysis of adhesion a month ago - Patient is nothing by mouth - NG tube in place draining - Patient started on methyl nalroxone - Bowel enema is ordered - Surgery recommended conservative management - GI consult appreciated - Pain control with morphine - Patient said she is allergic to Toradol - I explained the benefits of taking morphine DVT prophylaxis - Lovenox Disposition - Continue inpatient care History Interval history: Patient still complains of abdominal pain, no bowel movement. NG tube is draining. Hospitalist Physical - Physical exam Narrative exam: Not in cardiopulmonary distress. The patient appeared Emaciated. Vital signs as documented. Head exam is unremarkable. No scleral icterus . Neck is without jugular venous distension, thyromegaly, or carotid bruits. Lungs are clear to auscultation. Cardiac exam reveals regular rate and Rhythm. First and second heart sounds normal. No murmurs, rubs or gallops. Abdominal exam reveals distended abdomen, normoactive bowel sounds. Extremities are nonedematous and both femoral and pedal pulses are normal. BUILDING OFFICIAL: Alert and oriented 3. - Constitutional Vitals: Temp Pulse Resp BP Pulse Ox 98.3 F 93 H 18 135/91 100 06/25/16 08:00 06/25/16 08:00 06/25/16 08:00 06/25/16 08:00 06/25/16 08:00 General appearance: Present: no acute distress, well-nourished Results - Labs CBC & Chem 7: 06/25/16 04:39 06/25/16 04:39 Labs: Laboratory Last Values WBC 5.1 K/mm3 (4.5-11.0) 06/25/16 04:39 RBC 3.67 M/mm3 (3.65-5.03) 06/25/16 04:39 Hgb 11.0 gm/dl (10.1-14.3) 06/25/16 04:39 Hct 33.4 % (30.3-42.9) 06/25/16 04:39 MCV 91 fl (79-97) 06/25/16 04:39 MCH 30 pg (28-32) 06/25/16 04:39 MCHC 33 % (30-34) 06/25/16 04:39 RDW 12.9 % (13.2-15.2) L 06/25/16 04:39 Plt Count 261 K/mm3 (140-440) 06/25/16 04:39 Lymph % (Auto) 31.3 % (13.4-35.0) 06/25/16 04:39 [place] % (Auto) 7.3 % (0.0-7.3) 06/25/16 04:39 Eos % (Auto) 6.3 % (0.0-4.3) H 06/25/16 04:39 Baso % (Auto) 0.9 % (0.0-1.8) 06/25/16 04:39 Lymph # 1.6 K/mm3 (1.2-5.4) 06/25/16 04:39 [place] # 0.4 K/mm3 (0.0-0.8) 06/25/16 04:39 Eos # 0.3 K/mm3 (0.0-0.4) 06/25/16 04:39 Baso # 0.0 K/mm3 (0.0-0.1) 06/25/16 04:39 Seg Neutrophils % 54.2 % (40.0-70.0) 06/25/16 04:39 Seg Neutrophils # 2.8 K/mm3 (1.8-7.7) 06/25/16 04:39 Sodium 141 mmol/L (137-145) 06/25/16 04:39 Potassium 4.4 mmol/L (3.6-5.0) 06/25/16 04:39 Chloride 106.3 mmol/L (98-107) 06/25/16 04:39 Carbon Dioxide 27 mmol/L (22-30) 06/25/16 04:39 Anion Gap 12 mmol/L 06/25/16 04:39 BUN 3 mg/dL (7-17) L 06/25/16 04:39 Creatinine 0.4 mg/dL (0.7-1.2) L 06/25/16 04:39 Estimated GFR > 60 ml/min 06/25/16 04:39 BUN/Creatinine Ratio 7.50 % 06/25/16 04:39 Glucose 118 mg/dL (65-100) H 06/25/16 04:39 Calcium 8.4 mg/dL (8.4-10.2) 06/25/16 04:39 Total Bilirubin 0.4 mg/dL (0.1-1.2) 06/25/16 04:39 AST 21 units/L (5-40) 06/25/16 04:39 ALT 26 units/L (7-56) 06/25/16 04:39 Alkaline Phosphatase 112 units/L (35-129) 06/25/16 04:39 Total Protein 5.8 g/dL (6.3-8.2) L 06/25/16 04:39 Albumin 3.5 g/dL (3.9-5) L 06/25/16 04:39 Albumin/Globulin Ratio 1.5 % 06/25/16 04:39 Lipase 8 units/L (13-60) L 06/23/16 09:47 Urine Color Yellow (Yellow) 06/23/16 11:36 Urine Turbidity Clear (Clear) 06/23/16 11:36 Urine pH 6.0 (5.0-7.0) 06/23/16 11:36 Ur Specific [place] 1.010 (1.003-1.030) 06/23/16 11:36 Urine Protein <15 mg/dl mg/dL (Negative) 06/23/16 11:36 Urine Glucose (UA) Neg mg/dL (Negative) 06/23/16 11:36 Urine Ketones Neg mg/dL (Negative) 06/23/16 11:36 Urine Blood Neg (Negative) 06/23/16 11:36 Urine Nitrite Neg (Negative) 06/23/16 11:36 Urine Bilirubin Neg (Negative) 06/23/16 11:36 Urine Urobilinogen < 2.0 mg/dL (<2.0) 06/23/16 11:36 Ur Leukocyte Esterase Tr (Negative) 06/23/16 11:36 Urine WBC (Auto) 6.0 /HPF (0.0-6.0) 06/23/16 11:36 Urine RBC (Auto) 1.0 /HPF (0.0-6.0) 06/23/16 11:36 U Epithel Cells (Auto) 6.0 /HPF (0-13.0) 06/23/16 11:36 Urine Bacteria (Auto) 2+ /HPF (Negative) 06/23/16 11:36 Urine Mucus 1+ /HPF 06/23/16 11:36 Urine HCG, Qual Negative (Negative) 06/23/16 11:36
[2016-06-25] MEDS: DULCOLAX PR PRN (13:12)
[2016-06-25] MEDS: D5NS 1,000 ML IV SCH (19:40)
--- NOTE | 2016-06-25 19:51 | Gastroenterology Progress Note ---
Assessment and Plan SBO vs severe ileus 2/2 suspected opiods: -start enemas (discussed with pt's nurse) -cont relistor -limit narcotics Subjective Date of service: 06/25/16 Principal diagnosis: severe constipation Interval history: pt reports improvement in abd discomfort since yesterday. still has not had a bm since admission. did not receive enema. denies n/v. Objective - Constitutional Vitals: Temp Pulse Resp BP Pulse Ox 98.6 F 98 H 18 113/76 100 06/25/16 16:30 06/25/16 16:30 06/25/16 16:30 06/25/16 16:30 06/25/16 16:30 General appearance: no acute distress - Respiratory Respiratory effort: normal Respiratory: bilateral: CTA - Cardiovascular Rhythm: regular Heart Sounds: Present: S1 & S2 - Extremities Extremities: No edema - Gastrointestinal General gastrointestinal: Present: soft, non-distended (+ diffuse ttp, +bs) - Neurologic Neurological: alert and oriented x3 - Psychiatric Psychiatric: appropriate mood/affect - Labs CBC & Chem 7: 06/25/16 04:39 06/25/16 04:39 Labs: Laboratory Results - last 24 hr 06/25/16 06/25/16 04:39 04:39 WBC 5.1 RBC 3.67 Hgb 11.0 Hct 33.4 MCV 91 MCH 30 MCHC 33 RDW 12.9 L Plt Count 261 Lymph % (Auto) 31.3 [place] % (Auto) 7.3 Eos % (Auto) 6.3 H Baso % (Auto) 0.9 Lymph # 1.6 [place] # 0.4 Eos # 0.3 Baso # 0.0 Seg Neutrophils % 54.2 Seg Neutrophils # 2.8 Sodium 141 Potassium 4.4 Chloride 106.3 Carbon Dioxide 27 Anion Gap 12 BUN 3 L Creatinine 0.4 L Estimated GFR > 60 BUN/Creatinine Ratio 7.50 Glucose 118 H Calcium 8.4 Total Bilirubin 0.4 AST 21 ALT 26 Alkaline Phosphatase 112 Total Protein 5.8 L Albumin 3.5 L Albumin/Globulin Ratio 1.5 - Imaging x-ray: report reviewed
[2016-06-26] MEDS: MORPHINE IV PRN ×5 (00:58→21:43)
[2016-06-26] MEDS: D5NS 1,000 ML IV SCH ×2 (05:33→17:28)
[2016-06-26 06:26] LABS: Anion Gap 15 mmol/L; Blood Urea Nitrogen 3 mg/dL (7-17); Calcium 8.8 mg/dL (8.4-10.2); Carbon Dioxide 24 mmol/L (22-30); Chloride 108.4 mmol/L (98-107); Glucose 79 mg/dL (65-100); Potassium 3.8 mmol/L (3.6-5.0); Sodium 144 mmol/L (137-145)
[2016-06-26] MEDS: DULCOLAX PR PRN (09:23)
[2016-06-26] MEDS: LOVENOX SUB-Q SCH (09:24)
--- NOTE | 2016-06-26 10:26 | Gastroenterology Progress Note ---
Assessment and Plan 1. severe constipation 2. ileus vs SBO 2/2 above -clinically improving. okay to start trial of CLD and advance as tolerated if okay with surgery. Cont bowel regimen daily. will sign off, please call with questions. Subjective Date of service: 06/26/16 Principal diagnosis: severe constipation Interval history: pt reports improvement in abd pain/distention. + bm after suppository yesterday. denies n/v. requesting to eat Objective - Exam Narrative Exam: Gen: NAD, thin female CV: RRR Lungs: CTAB Abd: soft, + diffuse ttp (improved), no r/g, +bs - Constitutional Vitals: Temp Pulse Resp BP Pulse Ox 98.3 F 78 16 114/80 98 06/26/16 08:00 06/26/16 08:00 06/26/16 08:00 06/26/16 08:00 06/26/16 08:00 - Labs CBC & Chem 7: 06/25/16 04:39 06/26/16 05:15 Labs: Laboratory Results - last 24 hr 06/26/16 05:15 Sodium 144 Potassium 3.8 Chloride 108.4 H Carbon Dioxide 24 Anion Gap 15 BUN 3 L Creatinine 0.5 L Estimated GFR > 60 BUN/Creatinine Ratio 6.00 Glucose 79 Calcium 8.8
--- NOTE | 2016-06-26 11:37 | Progress Note ---
Assessment and Plan IMP: Opioid induced constipation, improved. PLAN: Ok to start clear liquid diet. Lactulose po. Subjective Date of service: 06/26/16 Patient Reports: Positive: no new complaints, bowel movement Objective Vital Signs - 12hr 06/26/16 06/26/16 00:00 08:00 Temperature 98.1 F 98.3 F Pulse Rate [ 80 78 Left Radial] Respiratory 20 16 Rate Blood Pressure 128/78 114/80 [Left Arm] O2 Sat by Pulse 97 98 Oximetry - Abdomen soft, not tender, bowel sounds normal - Labs 06/25/16 04:39 06/26/16 05:15 Diabetes panel 06/26/16 Range/Units 05:15 Sodium 144 (137-145) mmol/L Potassium 3.8 (3.6-5.0) mmol/L Chloride 108.4 H (98-107) mmol/L Carbon Dioxide 24 (22-30) mmol/L BUN 3 L (7-17) mg/dL Creatinine 0.5 L (0.7-1.2) mg/dL Glucose 79 (65-100) mg/dL Calcium 8.8 (8.4-10.2) mg/dL Calcium panel 06/26/16 Range/Units 05:15 Calcium 8.8 (8.4-10.2) mg/dL Pituitary panel 06/26/16 Range/Units 05:15 Sodium 144 (137-145) mmol/L Potassium 3.8 (3.6-5.0) mmol/L Chloride 108.4 H (98-107) mmol/L Carbon Dioxide 24 (22-30) mmol/L BUN 3 L (7-17) mg/dL Creatinine 0.5 L (0.7-1.2) mg/dL Glucose 79 (65-100) mg/dL Calcium 8.8 (8.4-10.2) mg/dL Adrenal panel 06/26/16 Range/Units 05:15 Sodium 144 (137-145) mmol/L Potassium 3.8 (3.6-5.0) mmol/L Chloride 108.4 H (98-107) mmol/L Carbon Dioxide 24 (22-30) mmol/L BUN 3 L (7-17) mg/dL Creatinine 0.5 L (0.7-1.2) mg/dL Glucose 79 (65-100) mg/dL Calcium 8.8 (8.4-10.2) mg/dL
[2016-06-26] MEDS: CEPHULAC PO SCH ×3 (12:05→23:55)
--- NOTE | 2016-06-26 21:48 | Progress Note ---
Assessment and Plan - Patient Problems (1) Small bowel obstruction Current Visit: Yes Status: Acute Plan to address problem: supportive care, surgery consulted, GI consulted: clamp ngt, advance diet, decrease narcotics, D/C planning when tolerating diet. (2) Abdominal pain Current Visit: No Status: Acute Qualifiers: Abdominal location: lower abdomen, unspecified Qualified Code(s): R10.30 - Lower abdominal pain, unspecified Plan to address problem: Pt complains of pain out of proportion to exam and interview. advance diet as tolerated. (3) DVT prophylaxis Current Visit: No Status: Acute History Interval history: Pt lying in bed, NGT in place. Pt denies pain, No reported nursing events. Pt instructed to ambulate QID, and prn. will clamp NGT. Hospitalist Physical - Constitutional Vitals: Temp Pulse Resp BP Pulse Ox 98.1 F 88 16 122/78 98 06/26/16 16:00 06/26/16 16:00 06/26/16 16:00 06/26/16 16:00 06/26/16 08:00 General appearance: Present: no acute distress, cachectic - EENT Eyes: Present: PERRL ENT: hearing intact - Neck Neck: Present: supple - Respiratory Respiratory effort: normal Respiratory: bilateral: CTA - Cardiovascular Rhythm: regular Heart Sounds: Present: S1 & S2 - Extremities Extremities: no ischemia Peripheral Pulses: within normal limits - Abdominal General gastrointestinal: soft, non-tender, non-distended, normal bowel sounds, no hepatomegaly, no splenomegaly - Integumentary Integumentary: Present: clear, dry - Psychiatric Psychiatric: appropriate mood/affect, cooperative - Neurologic Neurologic: CNII-XII intact Results - Labs CBC & Chem 7: 06/25/16 04:39 06/26/16 05:15 Labs: Laboratory Last Values WBC 5.1 K/mm3 (4.5-11.0) 06/25/16 04:39 RBC 3.67 M/mm3 (3.65-5.03) 06/25/16 04:39 Hgb 11.0 gm/dl (10.1-14.3) 06/25/16 04:39 Hct 33.4 % (30.3-42.9) 06/25/16 04:39 MCV 91 fl (79-97) 06/25/16 04:39 MCH 30 pg (28-32) 06/25/16 04:39 MCHC 33 % (30-34) 06/25/16 04:39 RDW 12.9 % (13.2-15.2) L 06/25/16 04:39 Plt Count 261 K/mm3 (140-440) 06/25/16 04:39 Lymph % (Auto) 31.3 % (13.4-35.0) 06/25/16 04:39 [place] % (Auto) 7.3 % (0.0-7.3) 06/25/16 04:39 Eos % (Auto) 6.3 % (0.0-4.3) H 06/25/16 04:39 Baso % (Auto) 0.9 % (0.0-1.8) 06/25/16 04:39 Lymph # 1.6 K/mm3 (1.2-5.4) 06/25/16 04:39 [place] # 0.4 K/mm3 (0.0-0.8) 06/25/16 04:39 Eos # 0.3 K/mm3 (0.0-0.4) 06/25/16 04:39 Baso # 0.0 K/mm3 (0.0-0.1) 06/25/16 04:39 Seg Neutrophils % 54.2 % (40.0-70.0) 06/25/16 04:39 Seg Neutrophils # 2.8 K/mm3 (1.8-7.7) 06/25/16 04:39 Sodium 144 mmol/L (137-145) 06/26/16 05:15 Potassium 3.8 mmol/L (3.6-5.0) 06/26/16 05:15 Chloride 108.4 mmol/L (98-107) H 06/26/16 05:15 Carbon Dioxide 24 mmol/L (22-30) 06/26/16 05:15 Anion Gap 15 mmol/L 06/26/16 05:15 BUN 3 mg/dL (7-17) L 06/26/16 05:15 Creatinine 0.5 mg/dL (0.7-1.2) L 06/26/16 05:15 Estimated GFR > 60 ml/min 06/26/16 05:15 BUN/Creatinine Ratio 6.00 % 06/26/16 05:15 Glucose 79 mg/dL (65-100) 06/26/16 05:15 Calcium 8.8 mg/dL (8.4-10.2) 06/26/16 05:15 Total Bilirubin 0.4 mg/dL (0.1-1.2) 06/25/16 04:39 AST 21 units/L (5-40) 06/25/16 04:39 ALT 26 units/L (7-56) 06/25/16 04:39 Alkaline Phosphatase 112 units/L (35-129) 06/25/16 04:39 Total Protein 5.8 g/dL (6.3-8.2) L 06/25/16 04:39 Albumin 3.5 g/dL (3.9-5) L 06/25/16 04:39 Albumin/Globulin Ratio 1.5 % 06/25/16 04:39 Lipase 8 units/L (13-60) L 06/23/16 09:47 Urine Color Yellow (Yellow) 06/23/16 11:36 Urine Turbidity Clear (Clear) 06/23/16 11:36 Urine pH 6.0 (5.0-7.0) 06/23/16 11:36 Ur Specific [place] 1.010 (1.003-1.030) 06/23/16 11:36 Urine Protein <15 mg/dl mg/dL (Negative) 06/23/16 11:36 Urine Glucose (UA) Neg mg/dL (Negative) 06/23/16 11:36 Urine Ketones Neg mg/dL (Negative) 06/23/16 11:36 Urine Blood Neg (Negative) 06/23/16 11:36 Urine Nitrite Neg (Negative) 06/23/16 11:36 Urine Bilirubin Neg (Negative) 06/23/16 11:36 Urine Urobilinogen < 2.0 mg/dL (<2.0) 06/23/16 11:36 Ur Leukocyte Esterase Tr (Negative) 06/23/16 11:36 Urine WBC (Auto) 6.0 /HPF (0.0-6.0) 06/23/16 11:36 Urine RBC (Auto) 1.0 /HPF (0.0-6.0) 06/23/16 11:36 U Epithel Cells (Auto) 6.0 /HPF (0-13.0) 06/23/16 11:36 Urine Bacteria (Auto) 2+ /HPF (Negative) 06/23/16 11:36 Urine Mucus 1+ /HPF 06/23/16 11:36 Urine HCG, Qual Negative (Negative) 06/23/16 11:36
[2016-06-27] MEDS: D5NS 1,000 ML IV SCH (04:26)
[2016-06-27] MEDS: CEPHULAC PO SCH (07:05)
--- NOTE | 2016-06-27 08:40 | Discharge Summary ---
Providers - Providers Date of Admission: 06/24/16 04:12 Attending physician: PADMINI HERNDON 06/24/16 13:10 Consult to Physician [CONS] Routine Consulting Provider: [facility] Reason For Exam: abdominal pain, recurrent GI obstruction Place consult to:: GI Notified:: answering service Phone number called:: [phone] Was contact made?: Yes If yes, spoke with:: tiana Time called:: 15:35 Hospitalization Condition: Good Hospital course: 50 YO Female admitted for PSBO, Abdominal pain, and constipation. Pt treated with bowel rest, IVF, supportive care and pain. Pt convalesced well during hospital course. GI consulted and Surgery team consulted. Pt treated with bowel regimen and discontinuation of narcotics. Pt diet advanced and NGT clamped without return of symptoms. Pt medically optimized. Pt seen and evaluated prior to discharge but no significant new physical exam findings since admission. Pt discharged home and instructed to f/u pcp 1wk for f/u care, and age/risk factor appropriate screening. Pt counseled regarding balanced high protein diet, frequent small meals and bowel habit training. 35 minutes dedicated to patient discharge and education. Disposition: DISCHARGED TO HOME OR SELFCARE - Discharge Diagnoses (1) Small bowel obstruction Status: Acute (2) Abdominal pain Status: Acute Qualifiers: Abdominal location: lower abdomen, unspecified Qualified Code(s): R10.30 - Lower abdominal pain, unspecified (3) DVT prophylaxis Status: Acute Core Measure Documentation - Palliative Care Palliative Care/ Comfort Measures: Not Applicable - Core Measures Any of the following diagnoses?: none Exam - Constitutional Vitals: Temp Pulse Resp BP Pulse Ox 97.6 F 76 16 127/84 100 06/27/16 08:30 06/27/16 08:30 06/27/16 08:30 06/27/16 08:30 06/27/16 08:30 General appearance: Present: cachectic - EENT Eyes: Present: PERRL ENT: hearing intact, clear oral mucosa - Neck Neck: Present: supple, normal ROM - Respiratory Respiratory effort: normal Respiratory: bilateral: CTA - Cardiovascular Heart Sounds: Present: S1 & S2. Absent: rub, click - Extremities Extremities: pulses symmetrical, No edema Peripheral Pulses: within normal limits - Abdominal General gastrointestinal: Present: soft, non-tender, non-distended, normal bowel sounds. Absent: tender, distended, hepatomegaly, splenomegaly, mass, hernia Female genitourinary: Present: normal - Integumentary Integumentary: Present: clear, warm, dry - Musculoskeletal Musculoskeletal: gait normal, strength equal bilaterally - Psychiatric Psychiatric: appropriate mood/affect, intact judgment & insight - Neurologic Neurologic: CNII-XII intact, moves all extremities Plan Activity: advance as tolerated Follow up with: MD DAMARIS [Other] - 3-5 Days Prescriptions: Bisacodyl [Dulcolax suppos] 10 mg [place] QDAY PRN #10 supp.rect PRN Reason: Constipation unrelieved by MOM Lactulose [Cephulac] 20 gm PO Q6HR #300 ml Lactulose [Cephulac] 20 gm PO Q6HR #30 oral.liqd oxyCODONE /ACETAMINOPHEN [Percocet 5/325 mg] 1 tab PO Q6H PRN #15 tablet PRN Reason: Pain, Moderate (4-6) Polyethylene Glycol 3350 [Miralax 3350] 17 gram PO DAILY #30 powd.pack
[2016-06-27] MEDS: MORPHINE IV PRN (09:23)
[2016-06-27] MEDS: LOVENOX SUB-Q SCH (09:24)
--- NOTE | 2016-06-27 10:54 | Progress Note ---
Assessment and Plan IMP: Resolved ileus. PLAN: Advance diet. Home per internal medicine. Subjective Date of service: 06/27/16 Patient Reports: Positive: tolerating liquids well Objective Vital Signs - 12hr 06/27/16 06/27/16 00:00 08:30 Temperature 98.4 F 97.6 F Pulse Rate [ 76 76 Left Radial] Respiratory 20 16 Rate Blood Pressure 140/97 127/84 [Left Arm] O2 Sat by Pulse 99 100 Oximetry - Abdomen soft, not tender, bowel sounds normal - Musculoskeletal normal gait, normal posture, other (walking in hallways without difficulty.) - Labs 06/25/16 04:39 06/26/16 05:15
[2016-06-27 13:29] VITALS: BP 118/71
== END 2016-06-27 14:00 | disposition home or self-care (01) | DRG 392 ==
LOC: ED 09:02 → 3A 06-24 04:12
PROVIDERS: ADMIT Internal Medicine; ATTEND Internal Medicine
DX: K59.03 Drug induced constipation (principal); K56.69 Other intestinal obstruction; F41.9 Anxiety disorder, unspecified; J45.909 Unspecified asthma, uncomplicated; F17.210 Nicotine dependence, cigarettes, uncomplicated; T40.2X5A Adverse effect of other opioids, initial encounter; N30.10 Interstitial cystitis (chronic) without hematuria; Y92.89 Other specified places as the place of occurrence of the external cause; Z88.8 Allergy status to other drugs, medicaments and biological substances; Z91.041 Radiographic dye allergy status; Z79.899 Other long term (current) drug therapy; Z82.49 Family history of ischemic heart disease and other diseases of the circulatory system; Z91.013 Allergy to seafood; Z90.49 Acquired absence of other specified parts of digestive tract; Z90.710 Acquired absence of both cervix and uterus
CPT/HCPCS: 36415; 74000; 74176; 80048; 80053; 81001; 81025; 83690; 85025; 96361; 96374; 96375; 96376; 99406; J1170; J1650; J1885; J2212; J2270; J2405; J7030; J7042

== ENCOUNTER 2016-07-22 09:41 | Emergency (ER) | payer MEDICARE ==
[2016-07-22 10:38] LABS: Eosinophils % (Auto) 0.2 % (0.0-4.3); Hematocrit 42.4 % (30.3-42.9); Hemoglobin 13.8 gm/dl (10.1-14.3); Mean Corpuscular HGB Conc 33 % (30-34); Mean Corpuscular Hemoglobin 30 pg (28-32); Mean Corpuscular Volume 91 fl (79-97); Platelet Count 301 K/mm3 (140-440); Red Blood Count 4.65 M/mm3 (3.65-5.03); White Blood Count 6.7 K/mm3 (4.5-11.0)
[2016-07-22 10:57] LABS: Alanine Aminotransferase 11 units/L (7-56); Albumin 4.7 g/dL (3.9-5); Albumin/Globulin Ratio 1.8 %; Alkaline Phosphatase 107 units/L (35-129); Anion Gap 19 mmol/L; BUN/Creatinine Ratio 14.28; Bilirubin,Total 0.8 mg/dL (0.1-1.2); Blood Urea Nitrogen 10 mg/dL (7-17); Calcium 10.1 mg/dL (8.4-10.2); Carbon Dioxide 25 mmol/L (22-30); Chloride 104.3 mmol/L (98-107); Glucose 187 mg/dL (65-100); Lipase 16 units/L (13-60); Potassium 3.6 mmol/L (3.6-5.0); Sodium 145 mmol/L (137-145); Total Protein 7.3 g/dL (6.3-8.2)
[2016-07-22] MEDS ORDERED: DILAUDID IV ONE ×3 (11:47→15:39)
[2016-07-22] MEDS ORDERED: ZOFRAN IV ONE ×2 (11:47→15:40)
[2016-07-22] MEDS ORDERED: NACL 0.9% 1000 ML 1,000 ML IV ONE (11:47)
[2016-07-22 12:15] LABS: Bilirubin,Urine NEG (Negative); Blood,Urine NEG (Negative); Ketones,Urine NEG (Negative); Leukocyte Esterase,Urine NEG (Negative); Mucus,Urine FEW /HPF; Nitrite,Urine NEG (Negative); Urobilinogen,Urine < 2.0 mg/dL (<2.0)
--- NOTE | 2016-07-22 12:35 | XRay Report ---
ABDOMEN, 2 views: History: Vomiting. There is no evidence of free air beneath the diaphragms. The gas pattern within the abdomen is unremarkable. There is no evidence of bowel dilatation, significant air-fluid levels, or pathologic calcifications. Organ shadows are unremarkable. Cholecystectomy clips are noted. IMPRESSION: Unremarkable abdomen.
[2016-07-22] MEDS ORDERED: ZOFRAN ONE (14:45)
[2016-07-22] MEDS ORDERED: DILAUDID ONE (14:45)
--- NOTE | 2016-07-22 15:31 | Emergency Department Report ---
ED Abdominal Pain HPI - General Chief Complaint: Abdominal Pain Stated Complaint: EMESIS/ABD PAIN Time Seen by Provider: 07/22/16 11:36 Source: patient Mode of arrival: Ambulatory Limitations: No Limitations - History of Present Illness Initial Comments: 50-year-old female with a past medical history of asthma, anxiety, chronic pain , interstitial cystitis, previous cholecystectomy, appendectomy, section 3 and hysterectomy presents to the hospital complaints of abdominal pain, nausea, and vomiting. Symptoms ongoing for the last 3 days of poor by mouth intake. Patient complains of 10/10 generalized abdominal pain worse in the lower abdomen. Patient also reports pain with urination. Patient was here May for lysis of adhesions and had 2 subsequent admissions for ileus and narcotic induced constipation that was also read as possible SBO on CT. Patient states she takes MiraLAX and lactulose empirically try to prevent constipation with taken narcotic medication. Patient states she takes morphine and is trying to follow-up with pain management but has been rejected by 4 so far. Patient states she does not have any current narcotic medication. Severity scale (0 -10): 10 - Related Data Home Medications Medication Instructions Recorded Confirmed Last Taken Ferrous Sulfate 4 mg PO DAILY 01/10/16 06/24/16 06/22/16 Previous Rx's Medication Instructions Recorded Last Taken Type Bisacodyl [Dulcolax suppos] 10 mg [place] QDAY PRN #10 supp.rect 06/27/16 Unknown Rx Lactulose [Cephulac] 20 gm PO Q6HR #30 oral.liqd 06/27/16 Unknown Rx Lactulose [Cephulac] 20 gm PO Q6HR #300 ml 06/27/16 Unknown Rx Polyethylene Glycol 3350 [Miralax 17 gram PO DAILY #30 powd.pack 06/27/16 Unknown Rx 3350] oxyCODONE /ACETAMINOPHEN [Percocet 1 tab PO Q6H PRN #15 tablet 06/27/16 Unknown Rx 5/325 mg] Morphine ER [Ms Contin ER] 30 mg PO BID #20 tablet 07/22/16 Unknown Rx Ondansetron [Zofran Odt] 4 mg PO Q8HR PRN #30 tab.rapdis 07/22/16 Unknown Rx Oxycodone HCl/Acetaminophen 1 each PO Q6HR PRN #20 tablet 07/22/16 Unknown Rx [Percocet 10/325 mg] Allergies Allergy/AdvReac Type Severity Reaction Status Date / Time hydrocodone bitartrate Allergy Hives Verified 06/10/16 10:47 [From Vicodin] iodine Allergy Hives Verified 06/23/16 09:20 ketorolac tromethamine Allergy Hives Verified 06/10/16 10:47 [From Toradol] shellfish derived Allergy Hives Verified 06/10/16 10:47 tramadol Allergy Hives Verified 06/10/16 10:47 ED Review of Systems ROS: Stated complaint: EMESIS/ABD PAIN Other details as noted in HPI Comment: All other systems reviewed and negative Other: Constitutional: No fevers chills Eyes: No eye pain visual changes ENT: No ear pain or throat pain Neck: Denies pain Respiratory: Denies cough wheezing shortness of breath Cardiovascular: Denies chest pain, palpitations, syncope GI: as per hpi : Positive dysuria Musculoskeletal: Denies back pain Skin: Denies rash, lesions, erythema Neurologic: Denies headache, numbness, weakness Psychiatric: Denies suicidal ideation, hallucinations ED Past Medical Hx - Past Medical History Previous Medical History?: Yes Hx Congestive Heart Failure: No Hx Diabetes: No Hx Renal Disease: Yes (interstitial cystitis) Hx Sickle Cell Disease: No Hx Psychiatric Treatment: Yes (anxiety) Hx Asthma: Yes Hx COPD: No Hx HIV: No Additional medical history: INTERSTITIAL CYSTITIS - Surgical History Hx Cholecystectomy: Yes Hx Appendectomy: Yes Additional Surgical History: HYSTERECTOMY. X 3 - Social History Smoking Status: Current Every Day Smoker Substance Use Type: Alcohol - Medications Home Medications: Home Medications Medication Instructions Recorded Confirmed Last Taken Type Ferrous Sulfate 4 mg PO DAILY 01/10/16 06/24/16 06/22/16 History Bisacodyl [Dulcolax suppos] 10 mg [place] QDAY PRN #10 supp.rect 06/27/16 Unknown Rx Lactulose [Cephulac] 20 gm PO Q6HR #30 oral.liqd 06/27/16 Unknown Rx Lactulose [Cephulac] 20 gm PO Q6HR #300 ml 06/27/16 Unknown Rx Polyethylene Glycol 3350 [Miralax 17 gram PO DAILY #30 powd.pack 06/27/16 Unknown Rx 3350] oxyCODONE /ACETAMINOPHEN [Percocet 1 tab PO Q6H PRN #15 tablet 06/27/16 Unknown Rx 5/325 mg] Morphine ER [Ms Contin ER] 30 mg PO BID #20 tablet 07/22/16 Unknown Rx Ondansetron [Zofran Odt] 4 mg PO Q8HR PRN #30 tab.rapdis 07/22/16 Unknown Rx Oxycodone HCl/Acetaminophen 1 each PO Q6HR PRN #20 tablet 07/22/16 Unknown Rx [Percocet 10/325 mg] ED Physical Exam - General Limitations: No Limitations - Other Other exam information: General: No limitations, patient is alert in no acute distress Head exam: Atraumatic, normocephalic Eyes exam: Normal appearance, pupils equal reactive to light, extraocular movements intact ENT: Moist mucous membrane, normal oropharynx Neck exam: Normal inspection, full range of motion Respiratory exam: Clear to auscultation bilateral, no wheezes, rales, crackles Cardiovascular: Normal rate and rhythm, normal heart sounds Abdomen: Soft, nondistended, surgical scars noted. Generalized tenderness greatest in the lower abdomen Extremity: Full range of motion normal inspection no deformity Back: Normal Inspection, full range of motion, no tenderness Neurologic: Alert, oriented x3, cranial nerves intact, no motor or sensory deficit Psychiatric: normal affect, normal mood Skin: Warm, dry, intactm ED Course Vital Signs 07/22/16 07/22/16 09:55 12:25 Temperature 98.8 F Pulse Rate 91 H Respiratory 16 16 Rate Blood Pressure 114/92 O2 Sat by Pulse 98 Oximetry - Reevaluation(s) Reevaluation #1: 07/22/16 15:43 During ED stay patient required multiple doses of Dilaudid, Zofran, and normal saline. Patient did not have any episodes of vomiting in the ER and tolerated by mouth intake. ED Medical Decision Making - Lab Data Result diagrams: 07/22/16 10:14 07/22/16 10:14 Lab Results 07/22/16 07/22/16 07/22/16 Range/Units 10:14 10:14 11:57 WBC 6.7 (4.5-11.0) K/mm3 RBC 4.65 (3.65-5.03) M/mm3 Hgb 13.8 (10.1-14.3) gm/dl Hct 42.4 (30.3-42.9) % MCV 91 (79-97) fl MCH 30 (28-32) pg MCHC 33 (30-34) % RDW 14.0 (13.2-15.2) % Plt Count 301 (140-440) K/mm3 Lymph % (Auto) 17.0 (13.4-35.0) % [place] % (Auto) 4.0 (0.0-7.3) % Eos % (Auto) 0.2 (0.0-4.3) % Baso % (Auto) 1.0 (0.0-1.8) % Lymph # 1.1 L (1.2-5.4) K/mm3 [place] # 0.3 (0.0-0.8) K/mm3 Eos # 0.0 (0.0-0.4) K/mm3 Baso # 0.1 (0.0-0.1) K/mm3 Seg Neutrophils % 77.8 H (40.0-70.0) % Seg Neutrophils # 5.2 (1.8-7.7) K/mm3 Sodium 145 (137-145) mmol/L Potassium 3.6 (3.6-5.0) mmol/L Chloride 104.3 (98-107) mmol/L Carbon Dioxide 25 (22-30) mmol/L Anion Gap 19 mmol/L BUN 10 (7-17) mg/dL Creatinine 0.7 (0.7-1.2) mg/dL Estimated GFR > 60 ml/min BUN/Creatinine Ratio 14.28 % Glucose 187 H (65-100) mg/dL Calcium 10.1 (8.4-10.2) mg/dL Total Bilirubin 0.8 (0.1-1.2) mg/dL AST 16 (5-40) units/L ALT 11 (7-56) units/L Alkaline Phosphatase 107 (35-129) units/L Total Protein 7.3 (6.3-8.2) g/dL Albumin 4.7 (3.9-5) g/dL Albumin/Globulin Ratio 1.8 % Lipase 16 (13-60) units/L Urine Color Yellow (Yellow) Urine Turbidity Clear (Clear) Urine pH 6.0 (5.0-7.0) Ur Specific [place] 1.016 (1.003-1.030) Urine Protein 30 mg/dl (Negative) mg/dL Urine Glucose (UA) 50 (Negative) mg/dL Urine Ketones Neg (Negative) mg/dL Urine Blood Neg (Negative) Urine Nitrite Neg (Negative) Urine Bilirubin Neg (Negative) Urine Urobilinogen < 2.0 (<2.0) mg/dL Ur Leukocyte Esterase Neg (Negative) Urine WBC (Auto) 2.0 (0.0-6.0) /HPF Urine RBC (Auto) 3.0 (0.0-6.0) /HPF U Epithel Cells (Auto) 1.0 (0-13.0) /HPF Amorphous Crystals Few Urine Mucus Few /HPF - Radiology Data Radiology results: report reviewed (abd series xray: naf) - Medical Decision Making Patient has had 3 CT abdomen and pelvis since May 2016 and multiple abdominal x-rays. Patient states she is having normal bowel movements and it does not feel like her previous obstruction. I reviewed today's abdominal series x-ray with radiologist and was read as normal. The patient and myself decided that CT was unnecessary at this time given the patient's current presentation and improvement in abdominal series x-ray compared to previous. I consultation on the risk of cancer with high dose radiation exposure. Plan to discharge patient home with pain medication is requested. I highly suspect the patient has chronic narcotic dependence and pain presents to the ED without any narcotics at home. Patient takes high-dose morphine. Several days of meds will be prescribed and outpatient follow-up will be encouraged. Patient has dysuria with normal UA. Patient has mild increased glucose and some glucose in the urine with no history of diabetes. Outpatient repeat fasting glucose testing will be encouraged - Differential Diagnosis uti, cystitis, obstruction, gastroparesis Critical Care Time: No Critical care attestation.: If time is entered above; I have spent that time in minutes in the direct care of this critically ill patient, excluding procedure time. ED Disposition Clinical Impression: Abdominal pain, Interstitial cystitis, Chronic pain, Elevated glucose Disposition: DISCHARGED TO HOME OR SELFCARE Is pt being admited?: No Does the pt Need Aspirin: No Condition: Stable Instructions: Abdominal Pain (ED), Narcotic Pain Management (ED), Hyperglycemia , Non-Diabetic (ED) Additional Instructions: Your glucose was mildly elevated today. Follow-up with a primary care doctor for repeat glucose check and fasting glucose level. Prescriptions: Morphine ER [Ms Contin ER] 30 mg PO BID #20 tablet Ondansetron [Zofran Odt] 4 mg PO Q8HR PRN #30 tab.rapdis PRN Reason: Nausea And Vomiting Oxycodone HCl/Acetaminophen [Percocet 10/325 mg] 1 each PO Q6HR PRN #20 tablet PRN Reason: Pain Referrals: [facility] [Provider Group] - 3-5 Days [facility], [Primary Care Provider] - 3-5 Days DESIREE SPENCE MD [Staff Physician] - 3-5 Days (Urology) REESE CALDERON MD [Staff Physician] - 3-5 Days (primary care ) Time of Disposition: 15:47
[2016-07-22 21:10] VITALS: BP 115/79
== END 2016-07-22 16:45 | disposition home or self-care (01) ==
LOC: ED 09:41
DX: N30.10 Interstitial cystitis (chronic) without hematuria (principal); G89.29 Other chronic pain; R73.09 Other abnormal glucose; F41.9 Anxiety disorder, unspecified; J45.909 Unspecified asthma, uncomplicated; F17.200 Nicotine dependence, unspecified, uncomplicated; Z90.49 Acquired absence of other specified parts of digestive tract; Z90.710 Acquired absence of both cervix and uterus; Z91.013 Allergy to seafood; Z88.5 Allergy status to narcotic agent; Z88.6 Allergy status to analgesic agent
CPT/HCPCS: 36415; 74020; 80053; 81001; 83690; 85025; 87086; 96361; 96374; 96375; 96376; 99284; J1170; J2405; J7030

== ENCOUNTER 2016-09-25 11:20 | Emergency (ER) | payer MEDICARE ==
--- NOTE | 2016-09-25 11:49 | Emergency Department Report ---
Entered by MILAGROS MANLEY, acting as scribe for CECI HWANG NP. Stated Complaint: HEADACHES - HPI History of Present Illness: 50 y/o female presents with 9/10 SALDAÑA in the front and side of the head for the past week. Associated pain radiating down the back of the neck. Patient also reports abdominal and bladder pain with associated nausea and urinary urgency. - ROS Review of Systems: + Headache +abdominal pain + urinary urgency and frequency +nausea - Exam Physical Exam: GENERAL: The patient is a well-developed, well-nourished male in no apparent distress. Patient is alert and oriented x3. GLASCOW COMA Scale: 15 Neuro: steady gate MSE screening note: Focused history and physical exam performed. Due to findings the following was ordered: ED Disposition for MSE Condition: Stable This documentation as recorded by the scribe,MILAGROS MANLEY,accurately reflects the service I personally performed and the decisions made by ,CECI HWANG, JIE.
[2016-09-25 12:28] LABS: Basophils % (Auto) 0.8 % (0.0-1.8); Eosinophils % (Auto) 0.8 % (0.0-4.3); Hematocrit 39.5 % (30.3-42.9); Hemoglobin 13.1 gm/dl (10.1-14.3); Mean Corpuscular HGB Conc 33 % (30-34); Mean Corpuscular Hemoglobin 30 pg (28-32); Mean Corpuscular Volume 91 fl (79-97); Platelet Count 221 K/mm3 (140-440); Red Blood Count 4.33 M/mm3 (3.65-5.03); Red Cell Distribution Width 14.3 % (13.2-15.2); White Blood Count 6.3 K/mm3 (4.5-11.0)
--- NOTE | 2016-09-25 12:50 | Cat Scan Report ---
CT HEAD WITHOUT CONTRAST INDICATION: New onset headaches. COMPARISON: None similar. FINDINGS: Noncontrast head CT demonstrates normal, symmetric ventricles and sulci without acute or recent infarct, hemorrhage, mass effect or midline shift. No abnormal extra-axial fluid collections. Posterior fossa structures and basilar cisterns appear within normal limits. Symmetric eye globes. Slight ethmoid and sphenoid sinus mucosal thickening. Clear remainder imaged paranasal sinuses and mastoid air cells. Intact calvarium. Normal overlying scalp soft tissues. Numerous missing teeth. CONCLUSION: No acute intracranial CT abnormality with slight sinusitis, as described. Thank you for the opportunity to participate in this patient's care.
[2016-09-25 13:07] LABS: Bilirubin,Urine NEG (Negative); Blood,Urine NEG (Negative); Ketones,Urine NEG (Negative); Leukocyte Esterase,Urine NEG (Negative); Mucus,Urine FEW /HPF; Nitrite,Urine NEG (Negative); Protein,Urine <15 mg/dL mg/dL (Negative); Urobilinogen,Urine < 2.0 mg/dL (<2.0)
[2016-09-25 13:30] LABS: Alanine Aminotransferase 15 units/L (7-56); Albumin 4.8 g/dL (3.9-5); Albumin/Globulin Ratio 1.6 %; Alkaline Phosphatase 87 units/L (35-129); Anion Gap 20 mmol/L; Blood Urea Nitrogen 9 mg/dL (7-17); Calcium 9.4 mg/dL (8.4-10.2); Carbon Dioxide 25 mmol/L (22-30); Chloride 100.1 mmol/L (98-107); Glucose 69 mg/dL (65-100); Potassium 4.2 mmol/L (3.6-5.0); Sodium 141 mmol/L (137-145); Total Protein 7.8 g/dL (6.3-8.2)
[2016-09-25] MEDS ORDERED: XYLOCAINE TOPICAL 4% TP ONE (17:15)
[2016-09-25] MEDS ORDERED: REGLAN IV ONE (17:15)
[2016-09-25] MEDS ORDERED: DILAUDID IV ONE ×2 (17:15→18:13)
[2016-09-25] MEDS ORDERED: NACL 0.9% 500 ML 500 ML IV ONE (17:16)
--- NOTE | 2016-09-25 17:18 | Emergency Department Report ---
ED General Adult HPI - General Chief complaint: Headache Stated complaint: HEADACHES Time Seen by Provider: 09/25/16 11:37 Source: patient, RN notes reviewed, old records reviewed Mode of arrival: Ambulatory Limitations: No Limitations - History of Present Illness Initial comments: This is a 50-year-old female. I have evaluated her in the past. Past medical history includes interstitial cystitis, sciatica, small bowel obstruction, constipation, chronic pain. As per recent past documentation, patient has been rejected by four pain specialist. The patient presents to the ER with multiple complaints. The first complaint is headache. The headache is "all over." It has been going on for a week. The headache is sharp and severe. It is not sudden or thunderclap in nature. Did not reach maximal intensity within an hour. The patient gets frequent headaches. The patient reports that while she is experiencing these headaches, sometimes the pain becomes so severe that her extremities "lock up", and the patient is forced to close her eyes. However she indicates that she is awake during all of these events. There is no weakness focally to either side of body , there is no dysarthria, there are no sensory changes, there is no neck neck stiffness, no sore throat, and no fever. As far as the patient can tell, the headache has no exacerbating or relieving factors. The patient also complains of suprapubic and abdominal pain and distention, and "overactive bladder." She reports dysuria and pain with urination, she denies vaginal discharge or vaginal bleeding, and she reports that this is more intense than prior episodes of interstitial cystitis. The patient reports she can tolerate hydromorphone for pain. -: Gradual Location: head, abdomen Consistency: constant Improves with: other (headache has no exacerbating or relieving factors. The abdominal pain decreases with rest, and increases with palpation.) Associated Symptoms: headaches, loss of appetite, malaise, nausea/vomiting - Related Data Home Medications Medication Instructions Recorded Confirmed Last Taken Ferrous Sulfate 4 mg PO DAILY 01/10/16 06/24/16 06/22/16 Previous Rx's Medication Instructions Recorded Last Taken Type Bisacodyl [Dulcolax suppos] 10 mg OR QDAY PRN #10 supp.rect 06/27/16 Unknown Rx Lactulose [Cephulac] 20 gm PO Q6HR #30 oral.liqd 06/27/16 Unknown Rx Lactulose [Cephulac] 20 gm PO Q6HR #300 ml 06/27/16 Unknown Rx Polyethylene Glycol 3350 [Miralax 17 gram PO DAILY #30 powd.pack 06/27/16 Unknown Rx 3350] oxyCODONE /ACETAMINOPHEN [Percocet 1 tab PO Q6H PRN #15 tablet 06/27/16 Unknown Rx 5/325 mg] Morphine ER [Ms Contin ER] 30 mg PO BID #20 tablet 07/22/16 Unknown Rx Ondansetron [Zofran Odt] 4 mg PO Q8HR PRN #30 tab.rapdis 07/22/16 Unknown Rx Oxycodone HCl/Acetaminophen 1 each PO Q6HR PRN #20 tablet 07/22/16 Unknown Rx [Percocet 10/325 mg] Butalb/Acetaminophen/Caffeine 1 cap PO Q8HR PRN #15 cap 09/25/16 Unknown Rx [Fioricet 50-300-40 mg CAP] Dicyclomine [Bentyl] 10 mg PO QID PRN #20 capsule 09/25/16 Unknown Rx Ondansetron [Zofran Odt] 4 mg PO QID PRN #20 tab.rapdis 09/25/16 Unknown Rx Promethazine [Phenergan SUPPOS] 50 mg OR Q6H PRN #20 supp.rect 09/25/16 Unknown Rx Allergies Allergy/AdvReac Type Severity Reaction Status Date / Time hydrocodone bitartrate Allergy Hives Verified 09/25/16 11:44 [From Vicodin] iodine Allergy Hives Verified 09/25/16 11:44 ketorolac tromethamine Allergy Hives Verified 09/25/16 11:44 [From Toradol] shellfish derived Allergy Hives Verified 09/25/16 11:44 tramadol Allergy Hives Verified 09/25/16 11:44 ED Review of Systems ROS: Stated complaint: HEADACHES Other details as noted in HPI Constitutional: malaise. denies: fever Eyes: denies: vision change ENT: denies: epistaxis Respiratory: denies: see HPI Cardiovascular: denies: chest pain Gastrointestinal: abdominal pain, vomiting Genitourinary: dysuria Musculoskeletal: arthralgia Skin: denies: lesions Neurological: headache Psychiatric: anxiety ED Past Medical Hx - Past Medical History Hx Congestive Heart Failure: No Hx Diabetes: No Hx Renal Disease: Yes (interstitial cystitis) Hx Sickle Cell Disease: No Hx Psychiatric Treatment: Yes (anxiety) Hx Asthma: Yes Hx COPD: No Hx HIV: No Additional medical history: INTERSTITIAL CYSTITIS - Surgical History Hx Cholecystectomy: Yes Hx Appendectomy: Yes Additional Surgical History: HYSTERECTOMY. X 3 - Social History Smoking Status: Current Every Day Smoker Substance Use Type: Alcohol - Medications Home Medications: Home Medications Medication Instructions Recorded Confirmed Last Taken Type Ferrous Sulfate 4 mg PO DAILY 01/10/16 06/24/16 06/22/16 History Bisacodyl [Dulcolax suppos] 10 mg OR QDAY PRN #10 supp.rect 06/27/16 Unknown Rx Lactulose [Cephulac] 20 gm PO Q6HR #30 oral.liqd 06/27/16 Unknown Rx Lactulose [Cephulac] 20 gm PO Q6HR #300 ml 06/27/16 Unknown Rx Polyethylene Glycol 3350 [Miralax 17 gram PO DAILY #30 powd.pack 06/27/16 Unknown Rx 3350] oxyCODONE /ACETAMINOPHEN [Percocet 1 tab PO Q6H PRN #15 tablet 06/27/16 Unknown Rx 5/325 mg] Morphine ER [Ms Contin ER] 30 mg PO BID #20 tablet 07/22/16 Unknown Rx Ondansetron [Zofran Odt] 4 mg PO Q8HR PRN #30 tab.rapdis 07/22/16 Unknown Rx Oxycodone HCl/Acetaminophen 1 each PO Q6HR PRN #20 tablet 07/22/16 Unknown Rx [Percocet 10/325 mg] Butalb/Acetaminophen/Caffeine 1 cap PO Q8HR PRN #15 cap 09/25/16 Unknown Rx [Fioricet 50-300-40 mg CAP] Dicyclomine [Bentyl] 10 mg PO QID PRN #20 capsule 09/25/16 Unknown Rx Ondansetron [Zofran Odt] 4 mg PO QID PRN #20 tab.rapdis 09/25/16 Unknown Rx Promethazine [Phenergan SUPPOS] 50 mg OR Q6H PRN #20 supp.rect 09/25/16 Unknown Rx ED Physical Exam - General Limitations: No Limitations General appearance: alert, in no apparent distress - Head Head exam: Present: atraumatic, normocephalic - Eye Eye exam: Present: normal appearance, PERRL, EOMI. Absent: nystagmus - ENT ENT exam: Present: normal exam, normal orophraynx, mucous membranes moist, normal external ear exam - Neck Neck exam: Present: normal inspection, full ROM. Absent: tenderness, meningismus - Respiratory Respiratory exam: Present: normal lung sounds bilaterally. Absent: respiratory distress, wheezes, rales, rhonchi, stridor, decreased breath sounds - Cardiovascular Cardiovascular Exam: Present: regular rate, normal rhythm, normal heart sounds. Absent: bradycardia, tachycardia, irregular rhythm, systolic murmur, diastolic murmur, rubs, gallop - GI/Abdominal GI/Abdominal exam: Present: soft, tenderness, normal bowel sounds. Absent: distended, guarding, rebound, rigid, pulsatile mass - Extremities Exam Extremities exam: Present: normal inspection, full ROM, normal capillary refill. Absent: tenderness, pedal edema, joint swelling, calf tenderness - Back Exam Back exam: Present: normal inspection, full ROM. Absent: tenderness, CVA tenderness (R), CVA tenderness (L), muscle spasm, paraspinal tenderness, vertebral tenderness - Neurological Exam Neurological exam: Present: alert, oriented X3, normal gait, other (Extraocular movements intact. Tongue midline. No facial droop. Facial sensation intact to light touch in the V1, V2, V3 distribution bilaterally. 5 and 5 strength in 4 extremities.. Sensation is intact to light touch in 4 extremities.). Absent : motor sensory deficit - Psychiatric Psychiatric exam: Present: normal affect, normal mood - Skin Skin exam: Present: warm, dry, intact, normal color. Absent: rash ED Course Vital Signs 09/25/16 09/25/16 09/25/16 11:37 17:11 19:31 Temperature 98.6 F 97.8 F 98.3 F Pulse Rate 91 H 68 93 H Respiratory 15 16 20 Rate Blood Pressure 99/66 Blood Pressure 114/85 116/79 [Left] O2 Sat by Pulse 100 100 100 Oximetry - Reevaluation(s) Reevaluation #1: 09/25/16 18:07 differential diagnosis: Migraine headache, tension headache, cluster headache, psychogenic seizure, psychogenic convulsion, conversion disorder, interstitial cystitis, recurrent small bowel obstruction Assessment and plan: 50-year-old female with multiple complaints. The headache historically is bizarre, she has a GCS of 15, with an NIH score of 0, she is afebrile, there is no neck pain or neck stiffness on my exam, there is no nuchal rigidity, and there is a negative jolt accentuation test. A noncontrast CT scan of the brain is ordered, and is negative, based on history and physical, I don't believe the patient's history is consistent with TIA or seizure, she reports no lateralizing weakness or deficits, and she reports being awake during all of her episodes. She will be treated symptomatically for this with hydromorphone, Reglan, and intranasal 4% lidocaine. She can follow up with outpatient neurology for this, she is currently clinically sober , and I don't believe requires further evaluation emergently. Her urinalysis is unremarkable, not consistent with UTI, and she can therefore follow up with outpatient urology for her nonspecific and chronic urologic symptoms. She is noted to have some diffuse abdominal pain and tenderness, has had multiple small bowel obstructions in the past, I suspect the patient may have a component of narcotic bowel syndrome or functional abdominal pain, but we will obtain a CT scan with oral contrast to exclude small bowel obstruction. I'm informed by the nurse that the patient does indeed feel much improved after initial treatment with the aforementioned medications. 09/25/16 18:12 Reevaluation #2: 09/25/16 20:42 CT scan negative for small bowel obstruction. Patient feeling improved. No active vomiting. The patient will be discharged with nonnarcotic pain medication, nausea medication, instructions to follow up with outpatient urology, neurology, pain specialist. ED Medical Decision Making - Lab Data Result diagrams: 09/25/16 12:14 09/25/16 12:14 Vital Signs 09/25/16 09/25/16 11:37 17:11 Temperature 98.6 F 97.8 F Pulse Rate 91 H 68 Respiratory 15 16 Rate Blood Pressure 99/66 Blood Pressure 114/85 [Left] O2 Sat by Pulse 100 100 Oximetry Lab Results 09/25/16 09/25/16 09/25/16 Range/Units 11:57 12:14 12:14 WBC 6.3 (4.5-11.0) K/mm3 RBC 4.33 (3.65-5.03) M/mm3 Hgb 13.1 (10.1-14.3) gm/dl Hct 39.5 (30.3-42.9) % MCV 91 (79-97) fl MCH 30 (28-32) pg MCHC 33 (30-34) % RDW 14.3 (13.2-15.2) % Plt Count 221 (140-440) K/mm3 Lymph % (Auto) 16.3 (13.4-35.0) % Graham % (Auto) 7.9 H (0.0-7.3) % Eos % (Auto) 0.8 (0.0-4.3) % Baso % (Auto) 0.8 (0.0-1.8) % Lymph # 1.0 L (1.2-5.4) K/mm3 Graham # 0.5 (0.0-0.8) K/mm3 Eos # 0.1 (0.0-0.4) K/mm3 Baso # 0.0 (0.0-0.1) K/mm3 Seg Neutrophils % 74.2 H (40.0-70.0) % Seg Neutrophils # 4.7 (1.8-7.7) K/mm3 Sodium 141 (137-145) mmol/L Potassium 4.2 (3.6-5.0) mmol/L Chloride 100.1 (98-107) mmol/L Carbon Dioxide 25 (22-30) mmol/L Anion Gap 20 mmol/L BUN 9 (7-17) mg/dL Creatinine 0.6 L (0.7-1.2) mg/dL Estimated GFR > 60 ml/min BUN/Creatinine Ratio 15.00 % Glucose 69 (65-100) mg/dL Calcium 9.4 (8.4-10.2) mg/dL Total Bilirubin 0.70 (0.1-1.2) mg/dL AST 22 (5-40) units/L ALT 15 (7-56) units/L Alkaline Phosphatase 87 (35-129) units/L Total Protein 7.8 (6.3-8.2) g/dL Albumin 4.8 (3.9-5) g/dL Albumin/Globulin Ratio 1.6 % Urine Color Yellow (Yellow) Urine Turbidity Clear (Clear) Urine pH 6.0 (5.0-7.0) Ur Specific [place] 1.009 (1.003-1.030) Urine Protein <15 mg/dl (Negative) mg/dL Urine Glucose (UA) Neg (Negative) mg/dL Urine Ketones Neg (Negative) mg/dL Urine Blood Neg (Negative) Urine Nitrite Neg (Negative) Urine Bilirubin Neg (Negative) Urine Urobilinogen < 2.0 (<2.0) mg/dL Ur Leukocyte Esterase Neg (Negative) Urine WBC (Auto) 3.0 (0.0-6.0) /HPF Urine RBC (Auto) 4.0 (0.0-6.0) /HPF U Epithel Cells (Auto) 1.0 (0-13.0) /HPF Urine Mucus Few /HPF - Radiology Data Radiology results: report reviewed, image reviewed interpreted by me: Noncontrast CT scan of the brain is negative for acute disease. CT scan of the abdomen and pelvis: Critical care attestation.: If time is entered above; I have spent that time in minutes in the direct care of this critically ill patient, excluding procedure time. ED Disposition Clinical Impression: Abdominal pain, Headache Disposition: DC-01 TO HOME OR SELFCARE Is pt being admited?: No Does the pt Need Aspirin: No Condition: Stable Instructions: Acute Headache (ED) Additional Instructions: Take the Bentyl as needed for abdominal pain. Take the Fioricet as needed for headache. Take the Zofran as needed for nausea. Take the Phenergan suppository as needed for intractable nausea and vomiting. follow up with the primary care doctor within the next [address] Trujillo is a local primary care doctor. Follow up with a neurology or pain specialist within the next month. Dr. Burr is a local pain specialist. Anand Villeda are local neurology specialist. Dr. Leblanc is a local urology specialist; follow up within the next month. Return to the ER with new pain, worsened pain, migration of pain, fevers, chills , confusion, intractable nausea or vomiting, inability to tolerate with the feeds. Prescriptions: Butalb/Acetaminophen/Caffeine [Fioricet 50-300-40 mg CAP] 1 cap PO Q8HR PRN #15 cap PRN Reason: Headache Dicyclomine [Bentyl] 10 mg PO QID PRN #20 capsule PRN Reason: Pain Ondansetron [Zofran Odt] 4 mg PO QID PRN #20 tab.rapdis PRN Reason: Nausea Promethazine [Phenergan SUPPOS] 50 mg OR Q6H PRN #20 supp.rect PRN Reason: Nausea Referrals: PRIMARY CARE,MD [Primary Care Provider] - 3-5 Days JACKIE TRUJILLO MD [Staff Physician] - 3-5 Days YUE BRAN MD [Staff Physician] - 3-5 Days NAZANIN LEBLANC MD [Staff Physician] - 3-5 Days GATITO WARD MD [Staff Physician] - 3-5 Days VALDEMAR JIMÉNEZ MD [Staff Physician] - 3-5 Days
--- NOTE | 2016-09-25 19:21 | Admit Criteria Form ---
Admission Criteria Documentation: HEADACHES Clinical Indications for Admission to Inpatient Care (Place 'X' for any and all applicable criteria): Admission is indicated for ANY ONE of the following(1)(2)(3)(4): [ X]I. Inpatient admission required rather than observational care (Also use Headaches: Observation Care as appropriate) because of ANY ONE of the following: [ X]a) Severe pain requiring acute inpatient management [ ]b) Altered mental status that is severe or persistent [ ]c) Vomiting or dehydration that is severe or persistent [ ]d) New-onset focal neurologic deficit that is severe or persistent [ ]e) Hypertension requiring inpatient treatment [ ]f) Severe (new) neurologic findings requiring inpatient care as indicated by ANY ONE of following(9)(10): [ ]1) Papilledema [ ]2) Cerebral edema [ ]3) Mass effect on CT scan [ ]4) Cerebral bleeding, ischemia, or vasospasm(16) [ ]5) Hydrocephalus(17) [ ]6) Uncontrolled seizures [ ]g) IV infusion of anticoagulation, platelet inhibitors vasoactive, or antiarrhythmic medication. [ ]h) Cerebral bleeding, hydrocephalus, or vasospasm monitoring (16) [ ]i) Increased intracranial pressure or cerebral edema monitoring (17) [ ]j) Other condition, treatment or monitoring requiring inpatient admission [ ]II. Unruptured but threatening aneurysm or vascular malformation [ ]III. Venous sinus thrombosis [ ]IV. Increased intracranial pressure [ ]V. Cerebral spinal fluid leak with decreased intracranial pressure [ ]. Medication-overuse headache that has failed all outpatient management options [ ]VII. Vasculitis (eg, giant cell (temporal) arteritis, central nervous system vasculitis) requiring IV corticosteroids, IV antithrombotic therapy, or inpatient monitoring (eg, visual symptoms or findings, other ischemic manifestations)[A](10)(11) Extended stay beyond goal length of stay may be needed for (27): [ ]a) Intractable migraine [ ]b) Subarachnoid or intracranial hemorrhage [ ]c) Malignant hypertension [ ]d) Detoxification from drug withdrawal in medication-overuse headache (29) The original [facility] [employer] content created by [facility] [employer] has been revised. The portions of the content which have been revised are identified through the use of italic text or in bold, and Maryuri Wolffcharming charlie has neither reviewed nor approved the modified material.All other unmodified content is copyright [facility]. Please see references footnoted in the original [facility] edition 2016 Admission Criteria Met: Yes
[2016-09-25 19:32] VITALS: BP 116/79
--- NOTE | 2016-09-25 20:35 | Cat Scan Report ---
FINAL REPORT EXAM: CT ABDOMEN PELVIS WO CON HISTORY: abd pain TECHNIQUE: CT abdomen and pelvis with oral contrast. No intravenous contrast administered. PRIORS: None. FINDINGS: No acute abnormality identified in the lung bases. No focal abnormality identified within the liver parenchyma. Patient is status post cholecystectomy. The spleen demonstrates normal size and attenuation. No pancreatic abnormalities seen. Kidneys demonstrate no evidence of hydronephrosis or nephrolithiasis. No ureteral calculus identified. The adrenal glands are unremarkable. Abdominal aorta is normal in caliber. No pathologically enlarged lymph nodes are identified. No signs of free fluid or free air No evidence of small bowel dilatation. Appendix is not definitively identified. No pericolonic inflammatory changes are observed. Urinary bladder is unremarkable. IMPRESSION: Negative. No acute abnormalities seen
== END 2016-09-25 21:11 | disposition home or self-care (01) ==
LOC: ED 11:20
DX: R10.9 Unspecified abdominal pain (principal); R30.0 Dysuria; F41.9 Anxiety disorder, unspecified; J45.909 Unspecified asthma, uncomplicated; F17.200 Nicotine dependence, unspecified, uncomplicated; N30.10 Interstitial cystitis (chronic) without hematuria; Z90.49 Acquired absence of other specified parts of digestive tract; Z91.013 Allergy to seafood; Z88.8 Allergy status to other drugs, medicaments and biological substances
CPT/HCPCS: 36415; 70450; 74176; 80053; 81001; 85025; 96374; 96375; 96376; 99284; J1170; J2765; J7040

== ENCOUNTER 2016-10-06 03:56 | Emergency (ER) | payer MEDICARE ==
[2016-10-06 04:45] LABS: Bilirubin,Urine NEG (Negative); Blood,Urine NEG (Negative); Ketones,Urine 20 mg/dL (Negative); Leukocyte Esterase,Urine NEG (Negative); Mucus,Urine FEW /HPF; Nitrite,Urine NEG (Negative); Protein,Urine <15 mg/dL mg/dL (Negative); Urobilinogen,Urine < 2.0 mg/dL (<2.0)
[2016-10-06 05:32] LABS: Basophils % (Auto) 0.5 % (0.0-1.8); Eosinophils % (Auto) 1.5 % (0.0-4.3); Hematocrit 40.8 % (30.3-42.9); Hemoglobin 13.4 gm/dl (10.1-14.3); Mean Corpuscular HGB Conc 33 % (30-34); Mean Corpuscular Hemoglobin 29 pg (28-32); Mean Corpuscular Volume 90 fl (79-97); Platelet Count 189 K/mm3 (140-440); Red Blood Count 4.55 M/mm3 (3.65-5.03); Red Cell Distribution Width 13.9 % (13.2-15.2); White Blood Count 6.5 K/mm3 (4.5-11.0)
[2016-10-06 05:39] LABS: Alanine Aminotransferase 24 units/L (7-56); Albumin 4.6 g/dL (3.9-5); Albumin/Globulin Ratio 1.6 %; Alkaline Phosphatase 95 units/L (35-129); Anion Gap 20 mmol/L; BUN/Creatinine Ratio 18.33; Blood Urea Nitrogen 11 mg/dL (7-17); Calcium 9.3 mg/dL (8.4-10.2); Carbon Dioxide 23 mmol/L (22-30); Chloride 102.6 mmol/L (98-107); Glucose 78 mg/dL (65-100); Lipase 13 units/L (13-60); Potassium 4.2 mmol/L (3.6-5.0); Sodium 141 mmol/L (137-145); Total Protein 7.5 g/dL (6.3-8.2)
--- NOTE | 2016-10-06 06:10 | Emergency Department Report ---
ED General Adult HPI - General Chief complaint: Abdominal Pain Stated complaint: ABDOMINAL PAIN Time Seen by Provider: 10/06/16 06:08 Source: patient, EMS (ems notes not available at time of chart dictation), RN notes reviewed Mode of arrival: Stretcher Limitations: No Limitations - History of Present Illness Initial comments: This is a 50-year-old female. I evaluated her in the past. Please see my chart from 09/25/2016 for the full details of the patient's past medical history. Today, the patient comes in with her typical constellation of abdominal pain. It is epigastric and radiates down to the suprapubic area in her vagina. It is sharp. Patient reports nausea and vomiting. Denies fevers and chills. Denies chest pain or shortness of breath. There is no vaginal bleeding. The pain is constant. It increases with palpation. And it decreases with rest. The patient had a complete workup by myself on the of this month, including laboratory studies, and CT scan of the abdomen and pelvis with IV contrast. -: Gradual Location: abdomen Severity scale (0 -10): 10 Consistency: constant Improves with: medication, rest Worsens with: movement Associated Symptoms: denies: confusion, chest pain, cough - Related Data Home Medications Medication Instructions Recorded Confirmed Last Taken Ferrous Sulfate 4 mg PO DAILY 01/10/16 06/24/16 06/22/16 Previous Rx's Medication Instructions Recorded Last Taken Type Bisacodyl [Dulcolax suppos] 10 mg FL QDAY PRN #10 supp.rect 06/27/16 Unknown Rx Lactulose [Cephulac] 20 gm PO Q6HR #30 oral.liqd 06/27/16 Unknown Rx Lactulose [Cephulac] 20 gm PO Q6HR #300 ml 06/27/16 Unknown Rx Polyethylene Glycol 3350 [Miralax 17 gram PO DAILY #30 powd.pack 06/27/16 Unknown Rx 3350] oxyCODONE /ACETAMINOPHEN [Percocet 1 tab PO Q6H PRN #15 tablet 06/27/16 Unknown Rx 5/325 mg] Morphine ER [Ms Contin ER] 30 mg PO BID #20 tablet 07/22/16 Unknown Rx Ondansetron [Zofran Odt] 4 mg PO Q8HR PRN #30 tab.rapdis 07/22/16 Unknown Rx Oxycodone HCl/Acetaminophen 1 each PO Q6HR PRN #20 tablet 07/22/16 Unknown Rx [Percocet 10/325 mg] Butalb/Acetaminophen/Caffeine 1 cap PO Q8HR PRN #15 cap 09/25/16 Unknown Rx [Fioricet 50-300-40 mg CAP] Dicyclomine [Bentyl] 10 mg PO QID PRN #20 capsule 09/25/16 Unknown Rx Ondansetron [Zofran Odt] 4 mg PO QID PRN #20 tab.rapdis 09/25/16 Unknown Rx Promethazine [Phenergan SUPPOS] 50 mg FL Q6H PRN #20 supp.rect 09/25/16 Unknown Rx Dicyclomine [Bentyl] 10 mg PO QID PRN #20 capsule 10/06/16 Unknown Rx Ondansetron [Zofran Odt] 4 mg PO QID PRN #20 tab.rapdis 10/06/16 Unknown Rx Promethazine [Phenergan SUPPOS] 50 mg FL Q6H PRN #20 supp.rect 10/06/16 Unknown Rx Allergies Allergy/AdvReac Type Severity Reaction Status Date / Time hydrocodone bitartrate Allergy Hives Verified 09/25/16 11:44 [From Vicodin] iodine Allergy Hives Verified 09/25/16 11:44 ketorolac tromethamine Allergy Hives Verified 09/25/16 11:44 [From Toradol] shellfish derived Allergy Hives Verified 09/25/16 11:44 tramadol Allergy Hives Verified 09/25/16 11:44 ED Review of Systems ROS: Stated complaint: ABDOMINAL PAIN Other details as noted in HPI Constitutional: denies: fever Eyes: denies: vision change Respiratory: denies: cough Cardiovascular: denies: chest pain Gastrointestinal: abdominal pain Genitourinary: as per HPI Musculoskeletal: as per HPI Skin: as per HPI Neurological: as per HPI Psychiatric: anxiety ED Past Medical Hx - Past Medical History Previous Medical History?: Yes Hx Congestive Heart Failure: No Hx Diabetes: No Hx Renal Disease: Yes (interstitial cystitis) Hx Sickle Cell Disease: No Hx Psychiatric Treatment: Yes (anxiety) Hx Asthma: Yes Hx COPD: No Hx HIV: No Additional medical history: INTERSTITIAL CYSTITIS - Surgical History Past Surgical History?: Yes Hx Cholecystectomy: Yes Hx Appendectomy: Yes Additional Surgical History: HYSTERECTOMY. X 3 - Social History Smoking Status: Current Every Day Smoker Substance Use Type: Alcohol - Medications Home Medications: Home Medications Medication Instructions Recorded Confirmed Last Taken Type Ferrous Sulfate 4 mg PO DAILY 01/10/16 06/24/16 06/22/16 History Bisacodyl [Dulcolax suppos] 10 mg FL QDAY PRN #10 supp.rect 06/27/16 Unknown Rx Lactulose [Cephulac] 20 gm PO Q6HR #30 oral.liqd 06/27/16 Unknown Rx Lactulose [Cephulac] 20 gm PO Q6HR #300 ml 06/27/16 Unknown Rx Polyethylene Glycol 3350 [Miralax 17 gram PO DAILY #30 powd.pack 06/27/16 Unknown Rx 3350] oxyCODONE /ACETAMINOPHEN [Percocet 1 tab PO Q6H PRN #15 tablet 06/27/16 Unknown Rx 5/325 mg] Morphine ER [Ms Contin ER] 30 mg PO BID #20 tablet 07/22/16 Unknown Rx Ondansetron [Zofran Odt] 4 mg PO Q8HR PRN #30 tab.rapdis 07/22/16 Unknown Rx Oxycodone HCl/Acetaminophen 1 each PO Q6HR PRN #20 tablet 07/22/16 Unknown Rx [Percocet 10/325 mg] Butalb/Acetaminophen/Caffeine 1 cap PO Q8HR PRN #15 cap 09/25/16 Unknown Rx [Fioricet 50-300-40 mg CAP] Dicyclomine [Bentyl] 10 mg PO QID PRN #20 capsule 09/25/16 Unknown Rx Ondansetron [Zofran Odt] 4 mg PO QID PRN #20 tab.rapdis 09/25/16 Unknown Rx Promethazine [Phenergan SUPPOS] 50 mg FL Q6H PRN #20 supp.rect 09/25/16 Unknown Rx Dicyclomine [Bentyl] 10 mg PO QID PRN #20 capsule 10/06/16 Unknown Rx Ondansetron [Zofran Odt] 4 mg PO QID PRN #20 tab.rapdis 10/06/16 Unknown Rx Promethazine [Phenergan SUPPOS] 50 mg FL Q6H PRN #20 supp.rect 10/06/16 Unknown Rx ED Physical Exam - General Limitations: No Limitations General appearance: alert, in no apparent distress - Head Head exam: Present: atraumatic, normocephalic - Eye Eye exam: Present: normal appearance, EOMI. Absent: nystagmus - ENT ENT exam: Present: normal exam, normal orophraynx, mucous membranes moist, normal external ear exam - Neck Neck exam: Present: normal inspection, full ROM. Absent: tenderness, meningismus - Respiratory Respiratory exam: Present: normal lung sounds bilaterally. Absent: respiratory distress, wheezes, rales, rhonchi, stridor, chest wall tenderness, accessory muscle use, decreased breath sounds, prolonged expiratory - Cardiovascular Cardiovascular Exam: Present: regular rate, normal rhythm, normal heart sounds. Absent: bradycardia, tachycardia, irregular rhythm, systolic murmur, diastolic murmur, rubs, gallop - GI/Abdominal GI/Abdominal exam: Present: soft, tenderness, normal bowel sounds. Absent: distended, guarding, rebound, rigid, pulsatile mass - External exam: Present: normal external exam Speculum exam: Present: other (ESCORTED BY ROSEMARY Green) - Extremities Exam Extremities exam: Present: normal inspection, full ROM, normal capillary refill. Absent: pedal edema, joint swelling, calf tenderness - Back Exam Back exam: Present: normal inspection, full ROM. Absent: tenderness, CVA tenderness (R), CVA tenderness (L), muscle spasm, paraspinal tenderness, vertebral tenderness - Neurological Exam Neurological exam: Present: alert, oriented X3, other (Extraocular movements intact. Tongue midline. No facial droop. Facial sensation intact to light touch in the V1, V2, V3 distribution bilaterally. 5 and 5 strength in 4 extremities.. Sensation is intact to light touch in 4 extremities.). Absent: motor sensory deficit - Psychiatric Psychiatric exam: Present: anxious - Skin Skin exam: Present: warm, dry, intact, normal color. Absent: rash ED Course Vital Signs 10/06/16 10/06/16 10/06/16 04:35 04:39 07:18 Temperature 98.1 F Pulse Rate 77 Respiratory 18 20 18 Rate Blood Pressure 135/81 [Left] O2 Sat by Pulse 99 99 Oximetry 10/06/16 10/06/16 10/06/16 07:40 08:00 09:16 Temperature 97.7 F Pulse Rate 72 92 H Respiratory 16 18 20 Rate Blood Pressure 122/78 113/74 [Left] O2 Sat by Pulse 100 99 Oximetry - Reevaluation(s) Reevaluation #1: 10/06/16 08:37 Differential diagnosis: Endometriosis, urinary tract infection, constipation, conversion disorder, cyclic vomiting syndrome Assessment and plan: 50-year-old female with a near identical complaints tonight evaluated her on the . She is afebrile with reassuring vital signs. She has a mildly diffusely tender abdomen, this is consistent with multiple prior examinations that I have personally provided for this patient. Her most recent CT scan of the abdomen and pelvis was negative. She is passing gas. She is able to tolerate liquid feeds. She is given Bentyl, Carafate, ketamine and hydromorphone for pain. I have reevaluated the patient multiple times during her stay in the emergency department. Every time when I walk in, the patient appears to be comfortable, watching TV, or playing on a cellular phone. The patient received hydromorphone through an IV, there was a question of infiltration, but on my physical exam, the compartments are soft in the right upper extremity, with no redness, pus or streaking. The patient appears to have an acute on chronic exacerbation of her chronic abdominal pain, however all of her objective laboratory studies are unremarkable, and she had a negative CAT scan 11 days ago. She is defecating normally. I don't believe there is an emergent condition at this time, and given her young age, I don't believe it is in the patient's best interests to repeat ionizing radiation. Patient will be discharged with nonnarcotic pain medication, nausea medication, instructions to follow up with pain management, gastroenterology. ED Medical Decision Making - Lab Data Result diagrams: 10/06/16 04:46 10/06/16 04:46 Vital Signs 10/06/16 10/06/16 10/06/16 04:35 04:39 07:18 Temperature 98.1 F Pulse Rate 77 Respiratory 18 20 18 Rate Blood Pressure 135/81 [Left] O2 Sat by Pulse 99 99 Oximetry 10/06/16 10/06/16 07:40 08:00 Temperature Pulse Rate 72 Respiratory 16 18 Rate Blood Pressure 122/78 [Left] O2 Sat by Pulse 100 Oximetry Lab Results 10/06/16 10/06/16 10/06/16 Range/Units 04:26 04:46 04:46 WBC 6.5 (4.5-11.0) K/mm3 RBC 4.55 (3.65-5.03) M/mm3 Hgb 13.4 (10.1-14.3) gm/dl Hct 40.8 (30.3-42.9) % MCV 90 (79-97) fl MCH 29 (28-32) pg MCHC 33 (30-34) % RDW 13.9 (13.2-15.2) % Plt Count 189 (140-440) K/mm3 Lymph % (Auto) 20.0 (13.4-35.0) % [place] % (Auto) 5.8 (0.0-7.3) % Eos % (Auto) 1.5 (0.0-4.3) % Baso % (Auto) 0.5 (0.0-1.8) % Lymph # 1.3 (1.2-5.4) K/mm3 Conway # 0.4 (0.0-0.8) K/mm3 Eos # 0.1 (0.0-0.4) K/mm3 Baso # 0.0 (0.0-0.1) K/mm3 Seg Neutrophils % 72.2 H (40.0-70.0) % Seg Neutrophils # 4.7 (1.8-7.7) K/mm3 Sodium (137-145) mmol/L Potassium (3.6-5.0) mmol/L Chloride (98-107) mmol/L Carbon Dioxide (22-30) mmol/L Anion Gap mmol/L BUN (7-17) mg/dL Creatinine (0.7-1.2) mg/dL Estimated GFR ml/min BUN/Creatinine Ratio % Glucose (65-100) mg/dL Calcium (8.4-10.2) mg/dL Total Bilirubin (0.1-1.2) mg/dL AST (5-40) units/L ALT (7-56) units/L Alkaline Phosphatase (35-129) units/L Total Protein (6.3-8.2) g/dL Albumin (3.9-5) g/dL Albumin/Globulin Ratio % Lipase (13-60) units/L HCG, Qual Negative (Negative) Urine Color Yellow (Yellow) Urine Turbidity Clear (Clear) Urine pH 5.0 (5.0-7.0) Ur Specific [place] 1.017 (1.003-1.030) Urine Protein <15 mg/dl (Negative) mg/dL Urine Glucose (UA) Neg (Negative) mg/dL Urine Ketones 20 (Negative) mg/dL Urine Blood Neg (Negative) Urine Nitrite Neg (Negative) Urine Bilirubin Neg (Negative) Urine Urobilinogen < 2.0 (<2.0) mg/dL Ur Leukocyte Esterase Neg (Negative) Urine WBC (Auto) 3.0 (0.0-6.0) /HPF Urine RBC (Auto) 2.0 (0.0-6.0) /HPF U Epithel Cells (Auto) 3.0 (0-13.0) /HPF Urine Mucus Few /HPF 10/06/16 Range/Units 04:46 WBC (4.5-11.0) K/mm3 RBC (3.65-5.03) M/mm3 Hgb (10.1-14.3) gm/dl Hct (30.3-42.9) % MCV (79-97) fl MCH (28-32) pg MCHC (30-34) % RDW (13.2-15.2) % Plt Count (140-440) K/mm3 Lymph % (Auto) (13.4-35.0) % [place] % (Auto) (0.0-7.3) % Eos % (Auto) (0.0-4.3) % Baso % (Auto) (0.0-1.8) % Lymph # (1.2-5.4) K/mm3 [place] # (0.0-0.8) K/mm3 Eos # (0.0-0.4) K/mm3 Baso # (0.0-0.1) K/mm3 Seg Neutrophils % (40.0-70.0) % Seg Neutrophils # (1.8-7.7) K/mm3 Sodium 141 (137-145) mmol/L Potassium 4.2 (3.6-5.0) mmol/L Chloride 102.6 (98-107) mmol/L Carbon Dioxide 23 (22-30) mmol/L Anion Gap 20 mmol/L BUN 11 (7-17) mg/dL Creatinine 0.6 L (0.7-1.2) mg/dL Estimated GFR > 60 ml/min BUN/Creatinine Ratio 18.33 % Glucose 78 (65-100) mg/dL Calcium 9.3 (8.4-10.2) mg/dL Total Bilirubin 0.50 (0.1-1.2) mg/dL AST 28 (5-40) units/L ALT 24 (7-56) units/L Alkaline Phosphatase 95 (35-129) units/L Total Protein 7.5 (6.3-8.2) g/dL Albumin 4.6 (3.9-5) g/dL Albumin/Globulin Ratio 1.6 % Lipase 13 (13-60) units/L HCG, Qual (Negative) Urine Color (Yellow) Urine Turbidity (Clear) Urine pH (5.0-7.0) Ur Specific [place] (1.003-1.030) Urine Protein (Negative) mg/dL Urine Glucose (UA) (Negative) mg/dL Urine Ketones (Negative) mg/dL Urine Blood (Negative) Urine Nitrite (Negative) Urine Bilirubin (Negative) Urine Urobilinogen (<2.0) mg/dL Ur Leukocyte Esterase (Negative) Urine WBC (Auto) (0.0-6.0) /HPF Urine RBC (Auto) (0.0-6.0) /HPF U Epithel Cells (Auto) (0-13.0) /HPF Urine Mucus /HPF Critical care attestation.: If time is entered above; I have spent that time in minutes in the direct care of this critically ill patient, excluding procedure time. ED Disposition Clinical Impression: Abdominal pain Disposition: DC-01 TO HOME OR SELFCARE Is pt being admited?: No Does the pt Need Aspirin: No Condition: Stable Instructions: Abdominal Pain (ED) Additional Instructions: Take the pain medication, nausea medication as directed. Follow up with a mental health technician within the next 2 weeks. Follow up with the pain specialist within the next 2 weeks. Return to the ER right away with new pain, worsened pain, migration of pain, fevers, chills, chest pain, shortness of breath, intractable nausea or vomiting, inability to tolerate liquid feeds, new, worsening or different symptoms. Prescriptions: Dicyclomine [Bentyl] 10 mg PO QID PRN #20 capsule PRN Reason: Pain Ondansetron [Zofran Odt] 4 mg PO QID PRN #20 tab.rapdis PRN Reason: Nausea Promethazine [Phenergan SUPPOS] 50 mg FL Q6H PRN #20 supp.rect PRN Reason: Nausea Referrals: PRIMARY CARE,MD [Primary Care Provider] - 3-5 Days YUE BRAN MD [Staff Physician] - 3-5 Days MELCHOR MARQUEZ MD [Staff Physician] - 3-5 Days
[2016-10-06] MEDS ORDERED: KETALAR IV ONE ×2 (06:29)
[2016-10-06] MEDS ORDERED: KETALAR ONE (06:32)
[2016-10-06] MEDS ORDERED: CARAFATE PO ONE (07:06)
[2016-10-06] MEDS ORDERED: ZOFRAN IV ONE (07:06)
[2016-10-06] MEDS ORDERED: BENTYL IM ONE (07:06)
[2016-10-06] MEDS ORDERED: DILAUDID IV ONE (07:48)
[2016-10-06 09:16] VITALS: BP 113/74
== END 2016-10-06 09:17 | disposition home or self-care (01) ==
LOC: ED 03:56
DX: R10.9 Unspecified abdominal pain (principal); J45.909 Unspecified asthma, uncomplicated; F17.200 Nicotine dependence, unspecified, uncomplicated; F41.9 Anxiety disorder, unspecified; Z91.013 Allergy to seafood; Z88.8 Allergy status to other drugs, medicaments and biological substances
CPT/HCPCS: 36415; 80053; 81001; 83690; 84703; 85025; 96372; 96374; 96375; 99284; J0500; J1170; J2405

== ENCOUNTER 2016-11-03 17:53 | Emergency (ER) | payer MEDICARE ==
[2016-11-03 19:11] LABS: Basophils % (Auto) 1.2 % (0.0-1.8); Eosinophils % (Auto) 3.6 % (0.0-4.3); Hematocrit 38.5 % (30.3-42.9); Mean Corpuscular HGB Conc 34 % (30-34); Mean Corpuscular Hemoglobin 31 pg (28-32); Mean Corpuscular Volume 91 fl (79-97); Platelet Count 204 K/mm3 (140-440); Red Blood Count 4.23 M/mm3 (3.65-5.03); Red Cell Distribution Width 13.9 % (13.2-15.2); White Blood Count 6.2 K/mm3 (4.5-11.0)
[2016-11-03 19:20] LABS: Alanine Aminotransferase 18 units/L (7-56); Albumin 4.6 g/dL (3.9-5); Albumin/Globulin Ratio 2.1 %; Alkaline Phosphatase 87 units/L (35-129); Amylase 45 units/L (27-131); Anion Gap 17 mmol/L; Blood Urea Nitrogen 6 mg/dL (7-17); Calcium 9.2 mg/dL (8.4-10.2); Carbon Dioxide 28 mmol/L (22-30); Chloride 99.1 mmol/L (98-107); Glucose 83 mg/dL (65-100); Lipase 15 units/L (13-60); Potassium 4.5 mmol/L (3.6-5.0); Sodium 140 mmol/L (137-145); Total Protein 6.8 g/dL (6.3-8.2)
--- NOTE | 2016-11-03 19:26 | Cat Scan Report ---
FINAL REPORT PROCEDURE: CT ABDOMEN PELVIS WO CON TECHNIQUE: Computerized axial tomography of the abdomen and pelvis was performed without intravenous contrast. This study is performed without intravascular contrast material and its sensitivity for abdominal and pelvic pathology, including neoplasms, inflammation, abscess, free fluid, thrombosis, arterial dissection and infarction, is reduced compared with a contrast enhanced study. HISTORY: pain COMPARISON: CT exam dated September 25, 2016 FINDINGS: Mild hypoventilatory changes are seen in the dependent portions of the lungs. The spleen is normal in size. The liver is top normal limits in size. Patient has had prior cholecystectomy. Pancreatic duct is top normal limits in size. No pancreatic abnormality is seen. The adrenal glands and abdominal aorta are normal in size. No renal abnormality is seen. Bladder is not well-distended and is poorly evaluated. No free pelvic fluid is seen. Mild retained fecal material in the colon is within normal limits. Appendix is not seen but no pericecal inflammation is seen. There is increased fluid and likely mild wall thickening in the jejunum. Mild increased fluid is seen in the ilium with possible wall thickening and consideration should be given to jejunitis or enteritis. IMPRESSION: Possible changes of jejunitis or enteritis are seen.
[2016-11-03] MEDS ORDERED: NACL 0.9% 1000 ML 1,000 ML IV ONE (19:52)
[2016-11-03] MEDS ORDERED: DILAUDID IV ONE ×2 (19:53→21:56)
[2016-11-03] MEDS ORDERED: ZOFRAN IV ONE (19:54)
[2016-11-03 19:55] LABS: Bacteria,Urine 1+ /HPF (Negative); Bilirubin,Urine NEG (Negative); Blood,Urine NEG (Negative); Ketones,Urine NEG (Negative); Leukocyte Esterase,Urine LG (Negative); Mucus,Urine FEW /HPF; Nitrite,Urine NEG (Negative); Protein,Urine <15 mg/dL mg/dL (Negative); Urobilinogen,Urine < 2.0 mg/dL (<2.0)
--- NOTE | 2016-11-03 21:51 | Emergency Department Report ---
HPI - General Chief Complaint: Abdominal Pain Time Seen by Provider: 11/03/16 18:37 - HPI HPI: Abdominal pain 51-year-old -English female, presented to the ER, complaining of suprapubic discomfort. Patient stated history of interstitial cystitis. Patient alluded that she had a history of chronic pain, but as found it difficult to find a pain clinic that prescribed her what she wants here in [facility]. Patient states she was in [facility]. Prior to moving to this area. No nausea no vomiting. No diarrhea no fever no chills. ED Past Medical Hx - Past Medical History Previous Medical History?: Yes Hx Congestive Heart Failure: No Hx Diabetes: No Hx Renal Disease: Yes (interstitial cystitis) Hx Sickle Cell Disease: No Hx Psychiatric Treatment: Yes (anxiety) Hx Asthma: Yes Hx COPD: No Hx HIV: No Additional medical history: INTERSTITIAL CYSTITIS - Surgical History Past Surgical History?: Yes Hx Cholecystectomy: Yes Hx Appendectomy: Yes Additional Surgical History: HYSTERECTOMY. X 3 - Social History Smoking Status: Current Every Day Smoker Substance Use Type: Alcohol - Medications Home Medications: Home Medications Medication Instructions Recorded Confirmed Last Taken Type Ferrous Sulfate 4 mg PO DAILY 01/10/16 11/03/16 06/22/16 History Bisacodyl [Dulcolax suppos] 10 mg [place] QDAY PRN #10 supp.rect 06/27/16 11/03/16 Unknown Rx Morphine ER [Ms Contin ER] 30 mg PO BID #20 tablet 07/22/16 11/03/16 Unknown Rx Ondansetron [Zofran Odt] 4 mg PO QID PRN #20 tab.rapdis 10/06/16 11/03/16 Unknown Rx Ciprofloxacin HCl [Ciprofloxacin 500 mg PO Q12HR #20 tab 11/03/16 Unknown Rx TAB] Dicyclomine [Bentyl] 20 mg PO QID #60 bottle 11/03/16 Unknown Rx Morphine Sulfate [Morphine Sulfate] 15 mg PO DAILY 11/03/16 11/03/16 Unknown History Phenazopyridine [Pyridium] 100 mg PO DAILY 11/03/16 11/03/16 Unknown History traZODone [Desyrel] 100 mg PO DAILY 11/03/16 11/03/16 Unknown History ED Review of Systems ROS: Stated complaint: ABD PAIN Other details as noted in HPI Comment: All other systems reviewed and negative Gastrointestinal: abdominal pain, nausea Genitourinary: dysuria Physical Exam - Physical Exam Vital Signs: Vital Signs 11/03/16 11/03/16 11/03/16 17:50 17:55 18:00 Temperature Pulse Rate 80 Respiratory 22 Rate Blood Pressure 132/90 Blood Pressure [Left] O2 Sat by Pulse 100 98 99 Oximetry 11/03/16 11/03/16 11/03/16 18:10 19:23 19:46 Temperature 98.9 F Pulse Rate 67 Respiratory 18 18 Rate Blood Pressure 122/85 Blood Pressure 122/85 [Left] O2 Sat by Pulse 100 100 Oximetry 11/03/16 11/03/16 11/03/16 20:00 20:53 21:01 Temperature Pulse Rate Respiratory 18 Rate Blood Pressure 144/107 144/107 Blood Pressure [Left] O2 Sat by Pulse 97 100 Oximetry Physical Exam: Gen. alert and oriented 3 in no distress Head atraumatic normocephalic Eyes PERR LA EOMI Chest regular rate and rhythm normal S1-S2 lungs clear bilaterally Abdomen soft nondistended Back no point tenderness paravertebral tenderness Neuro no focal deficit. Psych normal mood. ED Course Vital Signs 11/03/16 11/03/16 11/03/16 17:50 17:55 18:00 Temperature Pulse Rate 80 Respiratory 22 Rate Blood Pressure 132/90 Blood Pressure [Left] O2 Sat by Pulse 100 98 99 Oximetry 11/03/16 11/03/16 11/03/16 18:10 19:23 19:46 Temperature 98.9 F Pulse Rate 67 Respiratory 18 18 Rate Blood Pressure 122/85 Blood Pressure 122/85 [Left] O2 Sat by Pulse 100 100 Oximetry 11/03/16 11/03/16 11/03/16 20:00 20:53 21:01 Temperature Pulse Rate Respiratory 18 Rate Blood Pressure 144/107 144/107 Blood Pressure [Left] O2 Sat by Pulse 97 100 Oximetry ED Medical Decision Making - Lab Data Result diagrams: 11/03/16 18:45 11/03/16 18:45 Critical care attestation.: If time is entered above; I have spent that time in minutes in the direct care of this critically ill patient, excluding procedure time. ED Disposition Clinical Impression: Enteritis, UTI (urinary tract infection) Disposition: DC-01 TO HOME OR SELFCARE Is pt being admited?: No Condition: Stable Instructions: Abdominal Pain (ED), Urinary Tract Infection in Women (ED) Prescriptions: Ciprofloxacin HCl [Ciprofloxacin TAB] 500 mg PO Q12HR #20 tab Dicyclomine [Bentyl] 20 mg PO QID #60 bottle Referrals: PRIMARY CARE, [Primary Care Provider] - 3-5 Days
[2016-11-03 22:18] VITALS: BP 128/86
== END 2016-11-03 22:17 | disposition home or self-care (01) ==
LOC: ED 17:53
DX: K52.9 Noninfective gastroenteritis and colitis, unspecified (principal); N39.0 Urinary tract infection, site not specified; F17.200 Nicotine dependence, unspecified, uncomplicated; N30.10 Interstitial cystitis (chronic) without hematuria; F41.9 Anxiety disorder, unspecified; J45.909 Unspecified asthma, uncomplicated; Z88.8 Allergy status to other drugs, medicaments and biological substances
CPT/HCPCS: 36415; 74176; 80053; 81001; 82150; 83690; 85025; 96361; 96374; 96375; 96376; 99284; J1170; J2405; J7030

== ENCOUNTER 2016-11-04 19:53 | Emergency (ER) | payer MEDICARE ==
[2016-11-04] MEDS ORDERED: DILAUDID IV ONE (22:49)
[2016-11-04] MEDS ORDERED: ZOFRAN IV ONE (22:49)
[2016-11-04] MEDS ORDERED: BENTYL IM ONE (22:50)
[2016-11-04] MEDS ORDERED: NACL 0.9% 1000 ML 1,000 ML IV ONE (22:50)
[2016-11-04 23:44] LABS: Alanine Aminotransferase 19 units/L (7-56); Albumin 4.2 g/dL (3.9-5); Albumin/Globulin Ratio 1.6 %; Alkaline Phosphatase 83 units/L (35-129); Anion Gap 17 mmol/L; Blood Urea Nitrogen 6 mg/dL (7-17); Carbon Dioxide 25 mmol/L (22-30); Glucose 87 mg/dL (65-100); Lipase 11 units/L (13-60); Potassium 3.8 mmol/L (3.6-5.0); Sodium 141 mmol/L (137-145); Total Protein 6.9 g/dL (6.3-8.2)
[2016-11-04 23:46] LABS: Basophils % (Auto) 1.2 % (0.0-1.8); Eosinophils % (Auto) 3.4 % (0.0-4.3); Hematocrit 37.4 % (30.3-42.9); Hemoglobin 12.7 gm/dl (10.1-14.3); Mean Corpuscular HGB Conc 34 % (30-34); Mean Corpuscular Hemoglobin 31 pg (28-32); Mean Corpuscular Volume 92 fl (79-97); Platelet Count 204 K/mm3 (140-440); Red Blood Count 4.07 M/mm3 (3.65-5.03); Red Cell Distribution Width 14.4 % (13.2-15.2); White Blood Count 6.5 K/mm3 (4.5-11.0)
--- NOTE | 2016-11-04 23:46 | Emergency Department Report ---
ED Abdominal Pain HPI - General Chief Complaint: Urogenital-Female Stated Complaint: LOWER ABD PAIN Time Seen by Provider: 11/04/16 22:39 Source: EMS, old records reviewed Mode of arrival: Wheelchair Limitations: No Limitations - History of Present Illness Initial Comments: 51-year-old female with a past medical history of anxiety, interstitial cystitis , previous cholecystectomy, hysterectomy, appendectomy, , and chronic pain presents to the hospital with abdominal pain. Patient has had multiple and frequent hospital ER visits for similar pain. Patient was just seen here yesterday for the same pain. She is CT abdomen and pelvis that showed possible jejunitis and enteritis and she was discharged on Cipro and Bentyl. Patient presents stating that she still has pain. She states she has had this pain clear for "a couple weeks". She reports intermittent nausea vomiting, severe burning is spasming with urination and pelvic pain. She has had similar symptoms in the past secondary to interstitial cystitis. Patient was started on Cipro for mild UA leukocytosis identified yesterday. Patient used to be on MS Contin when she lived in another states that since being in [place] she has been rejected by for pain specialist. Her PMD is currently affiliated with [facility]. Patient now states that she noticed some vaginal discharge and some mild bleeding for a few days. She was recently sexually active with a new partner and did not use condoms. Severity scale (0 -10): 10 - Related Data Home Medications Medication Instructions Recorded Confirmed Last Taken Ferrous Sulfate 4 mg PO DAILY 01/10/16 11/03/16 06/22/16 Morphine Sulfate [Morphine Sulfate] 15 mg PO DAILY 11/03/16 11/03/16 Unknown Phenazopyridine [Pyridium] 100 mg PO DAILY 11/03/16 11/03/16 Unknown traZODone [Desyrel] 100 mg PO DAILY 11/03/16 11/03/16 Unknown Previous Rx's Medication Instructions Recorded Last Taken Type Bisacodyl [Dulcolax suppos] 10 mg ID QDAY PRN #10 supp.rect 06/27/16 Unknown Rx Morphine ER [Ms Contin ER] 30 mg PO BID #20 tablet 07/22/16 Unknown Rx Ondansetron [Zofran Odt] 4 mg PO QID PRN #20 tab.rapdis 10/06/16 Unknown Rx Ciprofloxacin HCl [Ciprofloxacin 500 mg PO Q12HR #20 tab 11/03/16 Unknown Rx TAB] Dicyclomine [Bentyl] 20 mg PO QID #60 bottle 11/03/16 Unknown Rx Fluconazole [Diflucan TAB] 150 mg PO ONCE #2 tablet 11/03/16 Unknown Rx Ondansetron [Zofran Odt] 4 mg PO Q8HR PRN #20 tab.rapdis 11/05/16 Unknown Rx oxyCODONE /ACETAMINOPHEN [Percocet 1 tab PO Q6HR PRN #20 tablet 11/05/16 Unknown Rx 5/325] Allergies Allergy/AdvReac Type Severity Reaction Status Date / Time hydrocodone bitartrate Allergy Hives Verified 09/25/16 11:44 [From Vicodin] iodine Allergy Hives Verified 09/25/16 11:44 ketorolac tromethamine Allergy Hives Verified 09/25/16 11:44 [From Toradol] shellfish derived Allergy Hives Verified 09/25/16 11:44 tramadol Allergy Hives Verified 09/25/16 11:44 ED Review of Systems ROS: Stated complaint: LOWER ABD PAIN Other details as noted in HPI Comment: All other systems reviewed and negative Other: Constitutional: No fevers chills or weight loss Eyes: No eye pain visual changes or discharge ENT: No ear pain or throat pain Neck: Denies pain Respiratory: Denies cough wheezing shortness of breath Cardiovascular: Denies chest pain, palpitations, syncope GI: as per hpi : as per hpi Musculoskeletal: Denies back pain, joint swelling Skin: Denies rash, lesions, erythema Neurologic: Denies headache, numbness, weakness Psychiatric: Denies suicidal ideation, hallucinations Hematological/lymphatic: Denies easy bruising, lymphadenopathy ED Past Medical Hx - Past Medical History Hx Congestive Heart Failure: No Hx Diabetes: No Hx Renal Disease: Yes (interstitial cystitis) Hx Sickle Cell Disease: No Hx Psychiatric Treatment: Yes (anxiety) Hx Asthma: Yes Hx COPD: No Hx HIV: No Additional medical history: INTERSTITIAL CYSTITIS - Surgical History Hx Cholecystectomy: Yes Hx Appendectomy: Yes Additional Surgical History: HYSTERECTOMY. X 3 - Social History Smoking Status: Current Every Day Smoker Substance Use Type: Alcohol - Medications Home Medications: Home Medications Medication Instructions Recorded Confirmed Last Taken Type Ferrous Sulfate 4 mg PO DAILY 01/10/16 11/03/16 06/22/16 History Bisacodyl [Dulcolax suppos] 10 mg ID QDAY PRN #10 supp.rect 06/27/16 11/03/16 Unknown Rx Morphine ER [Ms Contin ER] 30 mg PO BID #20 tablet 07/22/16 11/03/16 Unknown Rx Ondansetron [Zofran Odt] 4 mg PO QID PRN #20 tab.rapdis 10/06/16 11/03/16 Unknown Rx Ciprofloxacin HCl [Ciprofloxacin 500 mg PO Q12HR #20 tab 11/03/16 Unknown Rx TAB] Dicyclomine [Bentyl] 20 mg PO QID #60 bottle 11/03/16 Unknown Rx Fluconazole [Diflucan TAB] 150 mg PO ONCE #2 tablet 11/03/16 Unknown Rx Morphine Sulfate [Morphine Sulfate] 15 mg PO DAILY 11/03/16 11/03/16 Unknown History Phenazopyridine [Pyridium] 100 mg PO DAILY 11/03/16 11/03/16 Unknown History traZODone [Desyrel] 100 mg PO DAILY 11/03/16 11/03/16 Unknown History Ondansetron [Zofran Odt] 4 mg PO Q8HR PRN #20 tab.rapdis 11/05/16 Unknown Rx oxyCODONE /ACETAMINOPHEN [Percocet 1 tab PO Q6HR PRN #20 tablet 11/05/16 Unknown Rx 5/325] ED Physical Exam - General Limitations: No Limitations - Other Other exam information: General: No limitations, patient is alert in no acute distress Head exam: Atraumatic, normocephalic Eyes exam: Normal appearance ENT: Moist mucous membrane, normal oropharynx Neck exam: Normal inspection, full range of motion, no meningismus nontender Respiratory exam: Clear to auscultation bilateral, no wheezes, rales, crackles Cardiovascular: Normal rate and rhythm, normal heart sounds Abdomen: Soft, nondistended, generalized tenderness, normal bowel sounds : No vaginal bleeding, no discharge Extremity: Full range of motion normal inspection no deformity Back: Normal Inspection, full range of motion, no tenderness Neurologic: Alert, oriented x3, cranial nerves intact, no motor or sensory deficit Psychiatric: normal affect, normal mood Skin: Warm, dry, intact ED Course Vital Signs 11/04/16 11/05/16 19:58 00:24 Temperature 99.4 F Pulse Rate 71 98 H Respiratory 18 16 Rate Blood Pressure 131/92 Blood Pressure 124/93 [Right] O2 Sat by Pulse 100 97 Oximetry ED Medical Decision Making - Lab Data Result diagrams: 11/04/16 23:06 11/04/16 23:06 Lab Results 11/04/16 11/04/16 Range/Units 23:06 23:06 WBC 6.5 (4.5-11.0) K/mm3 RBC 4.07 (3.65-5.03) M/mm3 Hgb 12.7 (10.1-14.3) gm/dl Hct 37.4 (30.3-42.9) % MCV 92 (79-97) fl MCH 31 (28-32) pg MCHC 34 (30-34) % RDW 14.4 (13.2-15.2) % Plt Count 204 (140-440) K/mm3 Lymph % (Auto) 27.3 (13.4-35.0) % [place] % (Auto) 6.3 (0.0-7.3) % Eos % (Auto) 3.4 (0.0-4.3) % Baso % (Auto) 1.2 (0.0-1.8) % Lymph # 1.8 (1.2-5.4) K/mm3 [place] # 0.4 (0.0-0.8) K/mm3 Eos # 0.2 (0.0-0.4) K/mm3 Baso # 0.1 (0.0-0.1) K/mm3 Seg Neutrophils % 61.8 (40.0-70.0) % Seg Neutrophils # 4.0 (1.8-7.7) K/mm3 Sodium 141 (137-145) mmol/L Carbon Dioxide 25 (22-30) mmol/L BUN 6 L (7-17) mg/dL Creatinine 0.5 L (0.7-1.2) mg/dL Estimated GFR > 60 ml/min BUN/Creatinine Ratio 12.00 % Glucose 87 (65-100) mg/dL Calcium 9.0 (8.4-10.2) mg/dL Total Bilirubin 0.60 (0.1-1.2) mg/dL AST 24 (5-40) units/L ALT 19 (7-56) units/L Alkaline Phosphatase 83 (35-129) units/L Total Protein 6.9 (6.3-8.2) g/dL Albumin 4.2 (3.9-5) g/dL Albumin/Globulin Ratio 1.6 % Lipase 11 L (13-60) units/L Potassium 3.8, chloride 103, anion gap 17 Wet prep negative. GC chlamydia pending - Medical Decision Making Patient's pain improved after 2 separate doses of Dilaudid 1 mg, Zofran, she also received 1 L normal saline and Pyridium. Patient expressed frustration stating that her pain is not adequately managed. Patient wants narcotic pain medication and stating that she is not part of the narcotic pain addiction problem and that she needs it for treatment. She's versus frustration a band turned down by 4 different pain clinics and that her primary care doctor encourages to come to the ER when she has exacerbation of her pain. Patient states she does not have any of her medication needs refills. I do not understand what this is the case is patient is indeed at least following up with her primary care doctor. I will refill some of the patient's medication a couple narcotic tablets however I suspect that patient is dependent on narcotics and was previously on high narcotic doses. Pt has had multiple ct scans and workup without any acute findings. Once again pt will be encouraged to f/u with PMD and for her pain management Critical Care Time: No Critical care attestation.: If time is entered above; I have spent that time in minutes in the direct care of this critically ill patient, excluding procedure time. ED Disposition Clinical Impression: Chronic abdominal pain, Chronic interstitial cystitis Disposition: TO HOME OR SELFCARE Is pt being admited?: No Does the pt Need Aspirin: No Condition: Stable Instructions: Chronic Pain (ED), Abdominal Pain (ED) Additional Instructions: Follow up with your doctor or pain management doctor for further management of the ongoing symptoms Prescriptions: Ondansetron [Zofran Odt] 4 mg PO Q8HR PRN #20 tab.rapdis PRN Reason: Nausea And Vomiting oxyCODONE /ACETAMINOPHEN [Percocet 5/325] 1 tab PO Q6HR PRN #20 tablet PRN Reason: Pain Referrals: PRIMARY CARE,MD [Primary Care Provider] - 3-5 Days Time of Disposition: 01:31
[2016-11-05] MEDS ORDERED: DILAUDID IV ONE (00:02)
[2016-11-05] MEDS ORDERED: PYRIDIUM PO ONE (00:02)
[2016-11-05 01:43] VITALS: BP 124/87
== END 2016-11-05 01:43 | disposition home or self-care (01) ==
LOC: ED 19:53
DX: N30.10 Interstitial cystitis (chronic) without hematuria (principal); J45.909 Unspecified asthma, uncomplicated; F17.210 Nicotine dependence, cigarettes, uncomplicated; Z88.8 Allergy status to other drugs, medicaments and biological substances; Z88.6 Allergy status to analgesic agent; Z91.013 Allergy to seafood
CPT/HCPCS: 36415; 80053; 83690; 85025; 87210; 87591; 96361; 96372; 96374; 96375; 96376; 99284; J0500; J1170; J2405; J7030